=== PATIENT | female | born 1975 | race African-American/Black ===

== ENCOUNTER → 2020-08-30 15:17 | Outpatient (CLI) | payer OTHER, SELFPAY | PROVIDERS: Visit Provider Internal Medicine Adolescent Medicine | DX: S91.301A Unspecified open wound, right foot, initial encounter (principal) | CPT/HCPCS: 87070; 87077; 87186; 87205 ==

== ENCOUNTER → 2020-09-06 08:47 | Outpatient (CLI) | payer OTHER, SELFPAY ==
--- NOTE | 2020-09-06 09:12 | US_ITS ---
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 Rt plantar surface non healing ulcer. Pressures/Indices Right Indices Left Indices Brachial 118.00 mmHg Brachial 120.00 mmHg Low Thigh 74.00 mmHg 0.62 Low Thigh 60.00 mmHg 0.50 Calf 75.00 mmHg 0.63 Calf Ankle(PT) 54.00 mmHg 0.45 Ankle(PT) Digit 47.00 mmHg 0.39 Digit Findings R FLORECITA 0.5 L FLORECITA 0.5 R 0.4 ABN WAVE FORMS DIMINISHED PULSES. Conclusion R FLORECITA 0.5 Severe arterial disease on the right Prior left BKA. Thigh/ brachial index is .5 suggesting severe arterial disease in left thigh ABN WAVE FORMS DIMINISHED PULSES. Electronically signed by : Beni Cannon MD 09/06/2020 17:49:33
== END ==
PROVIDERS: PCP Social Worker; Visit Provider Internal Medicine Adolescent Medicine
DX: M86.30 Chronic multifocal osteomyelitis, unspecified site (principal); E11.621 Type 2 diabetes mellitus with foot ulcer; Z89.421 Acquired absence of other right toe(s); Z89.512 Acquired absence of left leg below knee
CPT/HCPCS: 93923

== ENCOUNTER → 2020-11-10 07:51 | Outpatient (CLI) | payer MEDICAID, SELFPAY ==
[2020-11-10 08:02] LABS: Microscopic, Urine URINE MICROSCOPIC (MICROSCOPIC)
[2020-11-10 08:06] LABS: Appearance,Urine CLEAR (Clear); Bilirubin,Urine Negative (Negative); Blood, Urine Negative (Negative); Color,Urine YELLOW (Yellow); Glucose,Urine (UA) 3+ (Negative); Ketones,Urine Negative (Negative); Leukocyte Esterase,Urine Negative (Negative); Nitrate,Urine Negative (Negative); PH,Urine 5.5 (5.0-8.5); Protein,Urine TRACE (Negative); Urobilinogen,Urine 0.2 EU/dl (0.2)
[2020-11-10 08:22] LABS: WBC,Urine Occasional #/hpf (0-3)
== END ==
PROVIDERS: PCP Internal Medicine Adolescent Medicine; Visit Provider Internal Medicine Adolescent Medicine
DX: M54.5 Low back pain (principal); R30.9 Painful micturition, unspecified
CPT/HCPCS: 81001

== ENCOUNTER 2020-11-22 14:37 | Inpatient (IN) | payer MEDICAID, SELFPAY ==
[2020-11-22 14:38] VITALS: BP 90/47; PULSE 82; RESP 20; TEMP 37.7; O2SAT 99; BMI 53.2
[2020-11-22 14:40] VITALS: BMI 53.1
--- NOTE | 2020-11-22 14:41 | XR_ITS ---
PROCEDURE: XR CHEST PORTABLE CLINICAL HISTORY: COVID POSITIVE FROM [facility] COMPARISON: No exams were available for comparison FINDINGS: There is cardiomegaly with mild CHF or plasma volume overload. The azygos vein is also suggesting plasma volume overload. Patchy density is present in the right upper and right lower lobe consistent with right-sided pneumonia. IMPRESSION: Right-sided pneumonia with mild CHF/volume overload Dictated by: Beni Cannon MD 11/22/2020 15:37 Beni Cannon MD in [place] 11/22/2020 15:37
--- NOTE | 2020-11-22 15:13 | ECG_ITS ---
APPROVED REPORT Exam: Resting ECG HR:80 bpm ECG Measurements Heart Rate 80 AXES SD 114 P 40 QRSd 94 QRS -18 QT 370 T 39 QTc 426 Conclusion Normal sinus rhythm Normal ECG Electronically signed by : Jasper Chen MD 11/23/2020 11:44:48
[2020-11-22 15:30] LABS: ABG Base Excess -6.2 mmol/L (-2.4-2.3); ABG HCO3 19.1 mmhg (22.0-26.0); ABG Oxygen Saturation 98 % (90-100); ABG PCO2 34.1 mmhg (35.0-45.0); ABG PH 7.37 mmol/L (7.35-7.45); ABG PO2 111.6 mmhg (80-100); ABG TCO2 20.2 mmhg (23-27)
[2020-11-22 15:49] LABS: Allen's Test Acceptable; Oxygen 4L NC %; Source Right Radial
[2020-11-22 15:51] LABS: Influenza A, PCR Not Detected (NotDetected); Influenza B, PCR Not Detected (NotDetected)
[2020-11-22 15:52] LABS: Basophils % 0.3 % (0.1-2.0); Eosinophils % 0.1 % (0.1-12.0); Hematocrit 30.9 % (37.0-47.0); Hemoglobin 10.4 g/dL (12.2-16.2); Lymphocytes % 21.6 % (10-50); Mean Corpuscular HGB Conc 33.6 g/dL (31.8-35.4); Mean Corpuscular Hemoglobin 27.8 pg (27.0-31.2); Mean Corpuscular Volume 82.9 fl (81-99); Mean Platelet Volume 7.5 fl (7.4-10.4); Monocytes # 0.2 K/mm3 (0.1-1.0); Monocytes % 2.5 % (1.7-9.3); Neutrophils # 7.1 K/mm3 (1.8-7.8); Neutrophils % 75.5 % (37.0-80.0); Platelet Count 320 K/mm3 (142-424); Red Blood Count 3.73 M/mm3 (4.20-5.40); Red Cell Distribution Width 16.3 % (11.5-17.5); White Blood Count 9.4 K/mm3 (4.8-10.8)
[2020-11-22 15:53] LABS: Chloride 100 mmol/L (98-107); Potassium 5.7 mmoL/L (3.5-5.1); Sodium 135 mmol/L (136-145)
[2020-11-22 15:56] LABS: Anion Gap 13.7 mEq/L (5-15); Blood Urea Nitrogen 57 mg/dl (7-17); Carbon Dioxide 27 mmol/L (22.0-30.0); Creatinine Clearance Estimated 22 mL/min (50-200); Estimated Glomerular Filt Rate 17 ml/min (>60); GFR (African American) 21 ML/MIN (>60); Glucose 114 mg/dl (74-100); Lactic Acid 1.3 mmol/L (0.7-2.1)
--- NOTE | 2020-11-22 15:59 | HMH.EDGENADL ---
ED Disposition Clinical Impression: COVID-19 virus infection, Acute kidney injury, Hyperkalemia Pneumonia Qualifiers: Pneumonia type: due to unspecified organism Laterality: right Lung location: lower lobe of lung Qualified Code(s): J18.9 - Pneumonia, unspecified organism Respiratory failure with hypoxia Qualifiers: Chronicity: acute Qualified Code(s): J96.01 - Acute respiratory failure with hypoxia Hypotension Qualifiers: Hypotension type: unspecified hypotension type Qualified Code(s): I95.9 - Hypotension, unspecified Disposition: Admitted As Inpatient Condition on Discharge: Serious Referrals: Provider,Referral, MD [Primary Care Provider] - - Critical Care Critical Care Time: Yes Attestation: On 11/22/20, the high probability of a clinically significant, sudden or life threatening deterioration of the following system(s) required my full and direct attention, intervention and personal management. The time I documented below is in addition to time spent performing reported procedures but includes the following listed in this critical care notation. Total Critical Care Time: 40 Vital system(s) involved:: Circulatory Failure, Metabolic Failure, Respiratory Failure, Renal Failure My critical care processes included: Assessment & monitoring of V/S, Initial and Re-exams, Data Review/Interpretation, Coordinating Care, Medication Orders and management, Documentation Medical Decision Making - Hunter Inquiry Pt receiving controlled substance: No Vital Signs: 11/22/20 14:38 Temperature 99.9 F H Temperature Source Oral Pulse Rate [Left Radial] 82 Respiratory Rate 20 Blood Pressure [Right Arm] 90/47 L Blood Pressure Mean [Right Arm] 61 Blood Pressure Source [Right Arm] Automatic Cuff Blood Pressure Position [Right Arm] Sitting 02 Sat by Pulse Oximetry 99 Oxygen Delivery Method Room Air - Lab Data Lab Results 11/22/20 14:55: Specimen Source Right radial, O2 % 4l nc, ABG pH 7.37, ABG pCO2 34.1 L, ABG pO2 111.6 H, ABG HCO3 19.1 L, ABG Total CO2 20.2 L, ABG O2 Saturation 98, ABG Base Excess -6.2 L, Beni Test Acceptable 11/22/20 15:30: WBC 9.4, RBC 3.73 L, Hgb 10.4 L, Hct 30.9 L, MCV 82.9, MCH 27.8, MCHC 33.6, RDW 16.3, Plt Count 320, MPV 7.5, Neut % (Auto) 75.5, Lymph % (Auto) 21.6, [place] % (Auto) 2.5, Eos % (Auto) 0.1, Baso % (Auto) 0.3, Neut # (Auto) 7.1, Lymph # (Auto) 2.0, [place] # (Auto) 0.2, Eos # (Auto) 0.0, Baso # (Auto) 0.0 11/22/20 15:30: Sodium 135 L, Potassium 5.7 H, Chloride 100, Carbon Dioxide 27, Anion Gap 13.7, BUN 57 H, Creatinine 2.90 H, Estimated Creat Clear 22, Estimated GFR 17 L*, Est GFR ( Amer) 21 L, Glucose 114 H, Calcium 8.0 L, Troponin I 0.10 H 11/22/20 15:30: Lactate 1.3 11/22/20 15:30: SARS-CoV-2 (PCR) Detected A, Influenza A Untype (PCR) Not detected, Influenza Type B (PCR) Not detected 11/22/20 15:30: NT-Pro-B Natriuret Pep 123 Result diagrams: 11/22/20 15:30 11/22/20 15:30 Orders (Tests/Meds): ED MEDICATIONS Generic Name Dose Route Start Last Admin Trade Name Freq PRN Reason Stop Dose Admin Ceftriaxone Sodium 1 gm/ 50 mls @ 100 mls/hr 11/22/20 17:45 Sodium Chloride IV 12/06/20 17:44 Q24H VANCE Azithromycin 500 mg/ Sodium 250 mls @ 250 mls/hr 11/22/20 17:45 Chloride IV 12/06/20 17:44 Q24H VANCE Discontinued Medications Generic Name Dose Route Start Last Admin Trade Name Freq PRN Reason Stop Dose Admin Dextrose 50 ml 11/22/20 16:40 Dextrose 50% 50ml Syringe (Crash Cart) IVP 11/22/20 16:41 ONCE ONE Insulin Human Regular 5 unit 11/22/20 16:40 Insulin Human Regular 100 Units/Ml 10ml Vial IVP 11/22/20 16:41 ONCE ONE Sodium Chloride 1,000 ml 11/22/20 16:36 Sodium Chloride 0.9% 1000ml Bag IV 11/22/20 16:37 BOLUS ONE Sodium Polystyrene Sulfonate 15 gm 08/17/21 16:39 Sodium Poly Sulfon 15gm/60ml Oral.Susp PO 11/22/20 16:40 ONCE ONE ORDERS Category Date Time Status Troponin I Q3H Lab 11/22/20 17:4
[2020-11-22 16:17] LABS: Coronavirus 19, PCR Detected (NotDetected)
--- NOTE | 2020-11-22 16:17 | PC.NURSE ---
Positive covid results called and reported to
[2020-11-22 16:21] LABS: NT Pro Brain Natriuretic Pep. 123 pg/mL (0-125)
--- NOTE | 2020-11-22 16:49 | PC.NURSE ---
calling dental surgeon for dr gerardo at this time
[2020-11-22 19:29] LABS: Troponin I 0.09 ng/ml (0.00-0.034)
[2020-11-22 20:00] VITALS: O2SAT 95
--- NOTE | 2020-11-22 20:13 | PC.NURSE ---
Report called to [facility] at 194
[2020-11-22 20:40] VITALS: BP 114/76; PULSE 85; RESP 20; TEMP 36.8; O2SAT 94
[2020-11-22 20:53] VITALS: BP 103/54; PULSE 90; RESP 18; TEMP 36.8; O2SAT 95; BMI 51.5
--- NOTE | 2020-11-22 20:53 | PC.NURSE ---
patient up to floor via stretcher.
--- NOTE | 2020-11-22 21:05 | PC.NURSE ---
[employer] was off line and vital hx unable to obtain off unit.
[2020-11-22 21:43] LABS: Troponin I 0.08 ng/ml (0.00-0.034)
[2020-11-22 22:01] LABS: POC Glucose,Bedside 195 (70-110)
[2020-11-23] VITALS (9 sets, daily range): BP systolic 150–167; BP diastolic 59–96; PULSE 80–100; RESP 18–24; TEMP 36.7–37.3; O2SAT 91–98; BMI 51.3
--- NOTE | 2020-11-23 02:12 | ECG_ITS ---
APPROVED REPORT Exam: Resting ECG HR:98 bpm ECG Measurements Heart Rate 98 AXES VT 134 P 55 QRSd 100 QRS 6 QT 356 T 68 QTc 454 Conclusion Normal sinus rhythm Normal ECG Electronically signed by : Jasper Chen MD 11/25/2020 12:11:14
--- NOTE | 2020-11-23 03:52 | PC.NURSE ---
Pt is A/O x4. Pt is a resident at [place]. 2L NC with 02 stats >90%. Pt has had a non productive cough most of the night. C/O of mild chest tightness as she coughs. Noted left BKA, pt states she uses a wheelchair at alf. Pt is using a brief to void, urine shows hematuria. Pt has x1 very loose BM. Admin meds per MAR, VSS, Pt denies N/V, SOB. IV is patent infusing NS @ 150ml/hr. Call light within reach, no concerns at this time.
--- NOTE | 2020-11-23 05:21 | PC.WOUNDNOTE ---
Dressing is applied, C/D/I.
[2020-11-23 05:23] LABS: POC Glucose,Bedside 325 (70-110)
[2020-11-23 06:42] LABS: Chloride 103 mmol/L (98-107); Potassium 5.7 mmoL/L (3.5-5.1); Sodium 135 mmol/L (136-145)
[2020-11-23 06:43] LABS: POC Glucose,Bedside 347 (70-110)
[2020-11-23 06:45] LABS: Anion Gap 15.7 mEq/L (5-15); Blood Urea Nitrogen 56 mg/dl (7-17); Calcium 7.6 mg/dl (8.4-10.2); Carbon Dioxide 22 mmol/L (22.0-30.0); Creatinine Clearance Estimated 31 mL/min (50-200); Estimated Glomerular Filt Rate 25 ml/min (>60); GFR (African American) 31 ML/MIN (>60); Glucose 310 mg/dl (74-100)
--- NOTE | 2020-11-23 07:04 | PC.NURSE ---
Went into pt's room and pt is profusely sweating, can state her name, and date, stated she was at [facility]. Pt was lethargic. All vitals are stable, checked BS: 347. Called and explained symptoms to him, and he states he wants a rectal temp on her and it was 98.1. Pt is arousable by sternum rub.
--- NOTE | 2020-11-23 07:38 | HMH.PHAINT ---
home medicaiton list verified using list from skilled nursing
[2020-11-23 08:11] LABS: Basophils % 0.3 % (0.1-2.0); Eosinophils % 0.1 % (0.1-12.0); Hematocrit 31.2 % (37.0-47.0); Hemoglobin 10.2 g/dL (12.2-16.2); Lymphocytes # 1.3 K/mm3 (0.7-4.5); Lymphocytes % 16.6 % (10-50); Mean Corpuscular HGB Conc 32.6 g/dL (31.8-35.4); Mean Corpuscular Hemoglobin 27.3 pg (27.0-31.2); Mean Corpuscular Volume 83.6 fl (81-99); Mean Platelet Volume 8.9 fl (7.4-10.4); Monocytes # 0.3 K/mm3 (0.1-1.0); Monocytes % 3.3 % (1.7-9.3); Neutrophils # 6.1 K/mm3 (1.8-7.8); Neutrophils % 79.7 % (37.0-80.0); Platelet Count 299 K/mm3 (142-424); Red Blood Count 3.73 M/mm3 (4.20-5.40); Red Cell Distribution Width 16.3 % (11.5-17.5); White Blood Count 7.7 K/mm3 (4.8-10.8)
--- NOTE | 2020-11-23 08:25 | HMH.HP ---
*Admission Date: 11/22/20 *Chief complaint: Lethargy/fever/respiratory distress *History of present illness: Patient states that she has been sick for 2 weeks. She has tested positive for Covid. She says she started with sore throat and cough. She also complains today that her legs are aching. The patient is a resident of a [facility]. Orders were placed by her primary care provider for lab work and for monoclonal antibody therapy. However the patient today was lethargic and weak and had a low pulse oximetry and therefore sent to the emergency department for evaluation. She says that she was vaccinated for COVID-19. Above note per emergency department physician. Patient has been at the the [facility] for several months, transferred from , significant comorbidities including peripheral vascular disease, status post left lower leg amputation. Significant neuropathy issues and chronic pain. She apparently had the [employer] Covid vaccination several months ago. [facility] History I have reviewed the patient's past medical history: Yes Medical History: Reports:: Diabetes Mellitus Type 2, Hyperlipidemia, Hypertension Denies:: Cancer, MRSA *Have you ever received a pneumonia vaccine?: Yes *Have you received a flu vaccine this season?: Yes Other Medical History: Reports: Fibromyalgia, Thyroid Disease Other Surgeries: Yes: Cholecystectomy, Amputation: Yes (BKA Left) - *Social History Last grade of school completed: Some college Smoking Status: Current every day smoker Alcohol Intake: never *Occupational Status:: disabled Housing: assisted living facility *Travel in the last 8 weeks: None Family Hx:: Other Review of Systems - Review of Systems Review of systems:: unable to obtain Meds Home Medications Medication Instructions Recorded Confirmed Type Aspirin 81 mg PO DAILY 11/22/20 11/23/20 History Atorvastatin Calcium [Lipitor 40mg 40 mg PO HS 11/22/20 11/23/20 History Tab] Cholecalciferol (Vitd3)/Vit K2 1 each PO DAILY 11/22/20 11/23/20 History [K2-D3 10,000 Unit Capsule] Dapagliflozin Propanediol [Farxiga] 5 mg PO DAILY 11/22/20 11/23/20 History Famotidine [Acid Controller] 20 mg PO DAILY 11/22/20 11/23/20 History Ferrous Sulfate [Ferrous Sulfate 325 mg PO DAILY 11/22/20 11/23/20 History 325mg Tab] Insulin Glargine,Hum.rec.anlog 75 unit SQ BID 11/22/20 11/23/20 History [Basaglar Kwikpen U-100] Insulin Lispro [Humalog] 35 unit SQ AC 11/22/20 11/23/20 History L. Acidophilus/L.bulgaricus 1 each PO TIDWMEAL 11/22/20 11/23/20 History [Lactobacillus Tablet] Lidocaine 1 each TP HS 11/22/20 11/23/20 History Melatonin 3 mg PO HS 11/22/20 11/23/20 History Multivit with Minerals/Lutein [A 1 each PO DAILY 11/22/20 11/23/20 History Thru Z Advanced Formula Tab] Nortriptyline HCl 25 mg PO DAILY 11/22/20 11/23/20 History Pregabalin 200 mg PO TID 11/22/20 11/23/20 History Tizanidine HCl 4 mg PO TID 11/22/20 11/23/20 History Tramadol HCl [Tramadol 50mg 50 mg PO Q8H PRN 11/22/20 11/23/20 History Tab] carvediloL [Carvedilol 12.5mg Tab] 12.5 mg PO BID 11/22/20 11/23/20 History lisinopriL [Lisinopril] 40 mg PO DAILY 11/22/20 11/23/20 History Allergies Allergy/AdvReac Type Severity Reaction Status Date / Time Penicillins [PENICILLINS] Allergy Unknown RASH/HIVES Verified 11/22/20 16:39 Sulfa (Sulfonamide Allergy Unknown HIVES/RASH Verified 11/22/20 16:39 Antibiotics) [SULFA (SULFONAMIDE ANTIBIOTICS)] Exam Vital signs and Labs for Last 24 Hours: Temp Pulse Resp BP Pulse Ox 98.0 F 85 24 154/88 H 98 11/23/20 07:38 11/23/20 07:38 11/23/20 07:38 11/23/20 07:38 11/23/20 07:38 Laboratory Results - last 24 hr 11/22/20 14:55: Specimen Source Right radial, O2 % 4l nc, ABG pH 7.37, ABG pCO2 34.1 L, ABG pO2 111.6 H, ABG HCO3 19.1 L, ABG Total CO2 20.2 L, ABG O2 Saturation 98, ABG Base Excess -6.2 L, Beni Test Acceptable 11/22/20 15:30: WBC 9.4, RBC 3.73 L
[2020-11-23 12:32] LABS: POC Glucose,Bedside 359 (70-110)
--- NOTE | 2020-11-23 15:17 | SW/DCPLANNER ---
This patient currently resides at [facility]: per [facility] level of care. I will follow up with [facility] once patient is medically stable for discharge.
[2020-11-23 17:40] LABS: POC Glucose,Bedside 399 (70-110)
--- NOTE | 2020-11-23 17:46 | PC.NURSE ---
Pt is alert and oriented x4. She was lethargic this AM but much more alert this afternoon. She is currently up to the chair eating dinner. She requested I call [facility] and have them bring her her purse and some papers from her drawer. They stated they would look into it . She has been NSR on telemetry. Glucose has been elevated at 359 and 399. Covered w/SSI. Appetite is good. She is currently on 2L NC with O2 sats running > 92%. Dry cough noted. Unable to obtain sputum at this time. She states she feels weak but much better now that she is eating.
[2020-11-23 20:49] LABS: POC Glucose,Bedside 474 (70-110)
[2020-11-24] VITALS (8 sets, daily range): BP systolic 142–182; BP diastolic 64–89; PULSE 80–119; RESP 17–25; TEMP 36.1–39.1; O2SAT 85–97; BMI 515737.6
--- NOTE | 2020-11-24 03:28 | PC.NURSE ---
Pt is A/O x4. Pt has c/o of pain x2 this shift, admin meds per MAR with some relief. Pt has remained restless thus far in shift. Has not slept much. Remains on 2L NC with stats >90%. Pt denies any N/V. Pt had x1 loose BM this shift. Pure wick in place. Noted BKA on left. Dressing on right foot is C/D/I. Call light within reach, no concerns at this time.
[2020-11-24 05:10] LABS: POC Glucose,Bedside 339 (70-110)
[2020-11-24 10:03] LABS: Basophils % 0.2 % (0.1-2.0); Eosinophils % 0.3 % (0.1-12.0); Hemoglobin 11.2 g/dL (12.2-16.2); Lymphocytes # 1.2 K/mm3 (0.7-4.5); Mean Corpuscular HGB Conc 34.1 g/dL (31.8-35.4); Mean Corpuscular Hemoglobin 27.6 pg (27.0-31.2); Mean Corpuscular Volume 81.1 fl (81-99); Mean Platelet Volume 7.7 fl (7.4-10.4); Monocytes # 0.3 K/mm3 (0.1-1.0); Monocytes % 2.7 % (1.7-9.3); Neutrophils # 8.2 K/mm3 (1.8-7.8); Neutrophils % 84.9 % (37.0-80.0); Platelet Count 344 K/mm3 (142-424); Red Blood Count 4.06 M/mm3 (4.20-5.40); Red Cell Distribution Width 16.5 % (11.5-17.5); White Blood Count 9.6 K/mm3 (4.8-10.8)
[2020-11-24 10:10] LABS: Chloride 104 mmol/L (98-107); Potassium 5.2 mmoL/L (3.5-5.1); Sodium 139 mmol/L (136-145)
[2020-11-24 10:13] LABS: Blood Urea Nitrogen 44 mg/dl (7-17); Creatinine Clearance Estimated 114 mL/min (50-200); Estimated Glomerular Filt Rate 40 ml/min (>60); GFR (African American) 49 ML/MIN (>60)
[2020-11-24 10:14] LABS: Anion Gap 16.2 mEq/L (5-15); Calcium 7.9 mg/dl (8.4-10.2); Carbon Dioxide 24 mmol/L (22.0-30.0); Glucose 295 mg/dl (74-100)
--- NOTE | 2020-11-24 12:45 | P.PN_ITS ---
Internal Medicine - PN: Subj *Date: 11/24/20 *Time: 12:45 Interval history: Patient has improved over the last 24 hours, is awake, alert, has some increasing pain, probably reasonable as we held her tramadol and Lyrica because of her mental status changes. Has had improving oxygen saturations but did have a temperature of 102 earlier today. Exam Vital signs and Labs for Last 24 Hours: Temp Pulse Resp BP Pulse Ox 102.3 F H 119 H 18 167/75 H 85 L 11/24/20 12:00 11/24/20 12:00 11/24/20 12:00 11/24/20 12:00 11/24/20 12:00 Laboratory Results - last 24 hr 11/23/20 16:08: POC Glucose 399 H* 11/23/20 20:35: POC Glucose 474 H* 11/24/20 05:00: POC Glucose 339 H* 11/24/20 09:58: WBC 9.6, RBC 4.06 L, Hgb 11.2 L, Hct 33.0 L, MCV 81.1, MCH 27.6, MCHC 34.1, RDW 16.5, Plt Count 344, MPV 7.7, Neut % (Auto) 84.9 H, Lymph % (Auto) 12.0, [place] % (Auto) 2.7, Eos % (Auto) 0.3, Baso % (Auto) 0.2, Neut # (Auto) 8.2 H, Lymph # (Auto) 1.2, [place] # (Auto) 0.3, Eos # (Auto) 0.0, Baso # (Auto) 0.0 11/24/20 09:58: Sodium 139, Potassium 5.2 H, Chloride 104, Carbon Dioxide 24, Anion Gap 16.2 H, BUN 44 H, Creatinine 1.40 H D, Estimated Creat Clear 114, Mariaa mated GFR 40 L, Est GFR ( Amer) 49 L D, Glucose 295 H, Calcium 7.9 L I & O for Last 24 hours: Intake & Output 11/22/20 11/23/20 11/24/20 11/25/20 11:59 11:59 11:59 11:59 Intake Total 1502 / 1502 1523 / 1523 Output Total 700 / 700 Balance 1502 / 1502 823 / 823 Weight 319 lb 9 oz 319 lb 9.066 oz Narrative: Patient is much more awake, alert and oriented. Anterior lung boudreaux have good air movement, heart rate regular. Abdomen is obese, soft, normal bowel sounds. Extremity exam remains abnormal, status post left amputation, right leg wrapped. Able to move her extremities well. No focal deficits. Assessment and Plan (1) Acute kidney injury Status: Acute Category: Medical Code(s): N17.9 - Acute kidney failure, unspecified (2) COVID-19 virus infection Status: Acute Category: Medical Code(s): U07.1 - COVID-19 (3) Hyperkalemia Status: Acute Category: Medical Code(s): E87.5 - Hyperkalemia (4) Hypotension Status: Acute Qualifiers: Hypotension type: unspecified hypotension type Qualified Code(s): I95.9 - Hypotension, unspecified Category: Medical Code(s): I95.9 - Hypotension, unspecified (5) Respiratory failure with hypoxia Status: Acute Qualifiers: Chronicity: acute Qualified Code(s): J96.01 - Acute respiratory failure with hypoxia Category: Medical Code(s): J96.91 - Respiratory failure, unspecified with hypoxia (6) Lobar pneumonia Status: Acute Category: Medical Code(s): J18.1 - Lobar pneumonia, unspecified organism - Assessment and plan all Dx Assessment and Plan for all problems:: I think patient's fever and oxygen issues are probably more likely from bacterial lobar pneumonia superimposed on COVID-19 given her vaccinated status and quickly improving oxygenation status. Continue antibiotics, consider transitioning to more assisted coverage regimen if continues to have fevers tomorrow. TANIA and leukocytosis are improving.
[2020-11-24 17:34] LABS: POC Glucose,Bedside 328 (70-110)
[2020-11-25] VITALS: BP 165/85; PULSE 90; PULSE 95; RESP 20; TEMP 36.8; O2SAT 92
[2020-11-25 01:18] LABS: POC Glucose,Bedside 318 (70-110)
--- NOTE | 2020-11-25 03:43 | PC.NURSE ---
A&OX4. TOLERATING 2-3LNC WELL. PT DOES HAVE A TENDENCY TO REMOVE O2 AND HAS TO BE ENCOURAGED TO KEEP IT ON. PT HAS C/O NAUSEA X1 WITH SHIFT, HAS GOTTEN SICK X2. PT CLEANED UP AND TX WITH ZOFRAN PER JUN. THIS HELPED NAUSEA. PT ALSO C/O PAIN IN LEGS, TX WITH PRN PAIN MED. ON REASSESSMENT, PT RESTING IN BED. RE-WRAPPED PT R FOOT PER PT REQUEST. CDI. PT HAS SLEPT INTERMITTENTLY T/O SHIFT. PT BEING CHANGED NEEDED, KEPT CLEAN AND DRY. NO OTHER C/O THUS FAR, VSS WILL CONTINUE TO MONITOR.
[2020-11-25 04:00] VITALS: BP 142/74; PULSE 100; PULSE 103; RESP 49; TEMP 37; O2SAT 90
[2020-11-25 05:00] VITALS: BMI 49.1
[2020-11-25 05:47] LABS: POC Glucose,Bedside 316 (70-110)
[2020-11-25 06:25] LABS: Basophils # 0.1 K/mm3 (0-0.2); Basophils % 0.7 % (0.1-2.0); Hematocrit 34.3 % (37.0-47.0); Hemoglobin 11.7 g/dL (12.2-16.2); Lymphocytes # 1.6 K/mm3 (0.7-4.5); Lymphocytes % 15.7 % (10-50); Mean Corpuscular Hemoglobin 28.2 pg (27.0-31.2); Mean Platelet Volume 7.4 fl (7.4-10.4); Monocytes # 0.4 K/mm3 (0.1-1.0); Monocytes % 4.5 % (1.7-9.3); Neutrophils # 7.8 K/mm3 (1.8-7.8); Platelet Count 366 K/mm3 (142-424); Red Blood Count 4.13 M/mm3 (4.20-5.40); Red Cell Distribution Width 16.4 % (11.5-17.5); White Blood Count 9.9 K/mm3 (4.8-10.8)
[2020-11-25 06:46] LABS: Chloride 100 mmol/L (98-107)
[2020-11-25 06:47] LABS: Potassium 5.1 mmoL/L (3.5-5.1); Sodium 138 mmol/L (136-145)
[2020-11-25 06:50] LABS: Anion Gap 16.1 mEq/L (5-15); Blood Urea Nitrogen 31 mg/dl (7-17); Calcium 7.9 mg/dl (8.4-10.2); Carbon Dioxide 27 mmol/L (22.0-30.0); Creatinine Clearance Estimated 54 mL/min (50-200); Estimated Glomerular Filt Rate 48 ml/min (>60); GFR (African American) 58 ML/MIN (>60); Glucose 294 mg/dl (74-100)
[2020-11-25 07:24] VITALS: BP 168/87; PULSE 107; RESP 18; TEMP 37.2; O2SAT 90
[2020-11-25 08:00] VITALS: PULSE 106; O2SAT 90
--- NOTE | 2020-11-25 08:30 | HMH.DCSUM ---
General - General Admission date:: 11/22/20 Discharge date: 11/25/20 HPI HPI: Patient states that she has been sick for 2 weeks. She has tested positive for Covid. She says she started with sore throat and cough. She also complains today that her legs are aching. The patient is a resident of a shelter. Orders were placed by her primary care provider for lab work and for monoclonal antibody therapy. However the patient today was lethargic and weak and had a low pulse oximetry and therefore sent to the emergency department for evaluation. She says that she was vaccinated for COVID-19. Above note per emergency department physician. Patient has been at the [facility] for several months, transferred from , significant comorbidities including peripheral vascular disease, status post left lower leg amputation. Significant neuropathy issues and chronic pain. She apparently had the [employer] Covid vaccination several months ago. Hospital Course Hospital Course: 45-year-old female with multiple comorbidities admitted for COVID-19 pneumonia and respiratory failure. Has responded well to steroids and antibiotics during admission. Oxygen requirement decreased during admission. Has had some intermittent nausea and vomiting but overall doing better. Reviewed labs from this morning, kidney function drastically improved, TANIA resolved. Examined on day of discharge, patient's lungs sound surprisingly clear, nontender abdomen. Given her current improvement in clinical stability, will plan to transfer her back to her shelter today for continued convalescence. We will treat with empiric course of antibiotics for superimposed bacterial infection/pneumonia. Continue as needed antiemetics. Will complete 3 more days of steroids for inflammation. Medically stable for discharge back to custodial facility where she will continue to have close monitoring. We will have close follow-up with her in the coming week. Pulmonal O2, 3 to 4 L for goal saturation greater than 90%. Objective Vital signs: Temp Pulse Resp BP Pulse Ox 98.9 F 107 H 18 168/87 H 90 L 11/25/20 07:24 11/25/20 07:24 11/25/20 07:24 11/25/20 07:24 11/25/20 07:24 no acute distress, morbidly obese, chronically ill appearing - *Routine HEENT Exam Head: Present: normocephalic Eye: Present: EOMI, PERRL ENT: Present: mucous membranes moist - *Routine Neck Exam Present: supple - *Routine Respiratory Exam Present: CTA bilaterally, distant breath sounds. Absent: crackles - *Routine Cardiovascular Exam Present: RRR - *Routine Abdominal Exam Present: soft, normoactive bowel sounds. Absent: tenderness - *Routine Extremities Exam Absent: cyanosis, clubbing, edema Comments: Left lower extremity amputation again noted, amputation wound well-healed - *Routine Skin Exam Present: warm. Absent: rash Results Labs on day of discharge: Labs from last 24 hours 11/25/20 11/25/20 11/25/20 06:10 06:10 05:20 WBC 9.9 RBC 4.13 L Hgb 11.7 L Hct 34.3 L MCV 83.0 MCH 28.2 MCHC 34.0 RDW 16.4 Plt Count 366 MPV 7.4 Neut % (Auto) 79.0 Lymph % (Auto) 15.7 Fleming % (Auto) 4.5 Eos % (Auto) 0.0 L Baso % (Auto) 0.7 Neut # (Auto) 7.8 Lymph # (Auto) 1.6 Fleming # (Auto) 0.4 Eos # (Auto) 0.0 Baso # (Auto) 0.1 Sodium 138 Potassium 5.1 Chloride 100 Carbon Dioxide 27 Anion Gap 16.1 H BUN 31 H D Creatinine 1.20 H Estimated Creat Clear 54 Estimated GFR 48 L Est GFR ( Amer) 58 L Glucose 294 H POC Glucose 316 H* Calcium 7.9 L 11/24/20 11/24/20 11/24/20 21:03 17:06 09:58 WBC RBC Hgb Hct MCV MCH MCHC RDW Plt Count MPV Neut % (Auto) Lymph % (Auto) Fleming % (Auto) Eos % (Auto) Baso % (Auto) Neut # (Auto) Lymph # (Auto) Fleming # (Auto) Eos # (Auto) Baso
[2020-11-25 10:55] VITALS: BP 142/81; PULSE 108; RESP 20; TEMP 37.2; O2SAT 90
== END 2020-11-25 11:40 | DRG 177 ==
LOC: ER 18:02 → 2ND 20:26
PROVIDERS: Admitting Provider Internal Medicine Adolescent Medicine; Emergency Provider Emergency Medicine; Visit Provider Internal Medicine Adolescent Medicine
DX: U07.1 COVID-19 (principal); J96.01 Acute respiratory failure with hypoxia; J12.82 Pneumonia due to coronavirus disease 2019; N17.9 Acute kidney failure, unspecified; E87.1 Hypo-osmolality and hyponatremia; Z68.42 Body mass index [BMI] 45.0-49.9, adult; E11.9 Type 2 diabetes mellitus without complications; Z79.4 Long term (current) use of insulin; Z79.899 Other long term (current) drug therapy; E87.5 Hyperkalemia; I95.9 Hypotension, unspecified; E11.51 Type 2 diabetes mellitus with diabetic peripheral angiopathy without gangrene; E11.40 Type 2 diabetes mellitus with diabetic neuropathy, unspecified; E78.5 Hyperlipidemia, unspecified; I10 Essential (primary) hypertension; M79.7 Fibromyalgia; F17.200 Nicotine dependence, unspecified, uncomplicated; Z89.512 Acquired absence of left leg below knee; Z88.0 Allergy status to penicillin; Z88.2 Allergy status to sulfonamides; E66.9 Obesity, unspecified
CPT/HCPCS: 36415; 71045; 80048; 82803; 82962; 83605; 83880; 84484; 85025; 87040; 93005; 96365; 96375; 99285; J0456; J2405; U0003

== ENCOUNTER 2020-11-26 16:21 | Inpatient (IN) | payer MEDICAID, SELFPAY ==
[2020-11-26] VITALS (7 sets, daily range): BP systolic 151–174; BP diastolic 70–85; PULSE 112–120; RESP 18–38; TEMP 36.6–37.2; O2SAT 93–97; BMI 48.0
--- NOTE | 2020-11-26 16:45 | HMH.EDGENADL ---
ED Disposition Clinical Impression: Pneumonia due to COVID-19 virus, Acute kidney injury, Encephalopathy Respiratory failure with hypoxia Qualifiers: Chronicity: acute Qualified Code(s): J96.01 - Acute respiratory failure with hypoxia Disposition: Admitted As Inpatient Condition on Discharge: Critical - Critical Care Critical Care Time: Yes Attestation: On 11/26/20, the high probability of a clinically significant, sudden or life threatening deterioration of the following system(s) required my full and direct attention, intervention and personal management. The time I documented below is in addition to time spent performing reported procedures but includes the following listed in this critical care notation. Vital system(s) involved:: Respiratory Failure My critical care processes included: Assessment & monitoring of V/S, Initial and Re-exams, Data Review/Interpretation, Coordinating Care, Medication Orders and management, Documentation Medical Decision Making - Hunter Inquiry Pt receiving controlled substance: No Vital Signs: 11/26/20 16:21 11/26/20 18:07 Temperature 97.8 F Temperature Source Oral Pulse Rate 120 H Pulse Rate [Left Radial] 112 H Respiratory Rate 18 Blood Pressure 174/85 H Blood Pressure [Right Arm] 162/70 H Blood Pressure Mean 102 Blood Pressure Mean [Right Arm] 100 Blood Pressure Source [Right Arm] Automatic Cuff Blood Pressure Position [Right Arm] Sitting 02 Sat by Pulse Oximetry 93 L 95 Oxygen Delivery Method Nasal Cannula Oxygen Flow Rate (LPM) 4 - Lab Data Lab Results 11/26/20 16:55: WBC 10.0, RBC 4.73, Hgb 13.1, Hct 41.4, MCV 87.6, MCH 27.8, MCHC 31.7 L, RDW 16.4, Plt Count 604 H D, MPV 7.9, Neut % (Auto) 81.0 H, Lymph % (Auto) 14.1, [place] % (Auto) 4.4, Eos % (Auto) 0.1, Baso % (Auto) 0.5, Neut # (Auto) 8.1 H, Lymph # (Auto) 1.4, [place] # (Auto) 0.4, Eos # (Auto) 0.0, Baso # (Auto) 0.1 11/26/20 16:55: Sodium 145, Potassium 5.0, Chloride 101, Carbon Dioxide 31 H, Anion Gap 18.0 H, BUN 51 H D, Creatinine 1.40 H, Estimated Creat Clear 43, Estimated GFR 40 L, Est GFR ( Amer) 49 L, Glucose 355 H, Calcium 8.3 L, Total Bilirubin 0.6, AST 54 H, ALT 42, Alkaline Phosphatase 128 H, Troponin I 0.05 H, Total Protein 8.8 H, Albumin 4.1, Globulin 4.7 H, Albumin/Globulin Ratio 0.9 L 11/26/20 16:55: Troponin I 0.05 H 11/26/20 16:55: NT-Pro-B Natriuret Pep 715 H 11/26/20 17:20: Specimen Source L/r, O2 % 100, ABG pH 7.47 H, ABG pCO2 40.8, ABG pO2 50.5 L, ABG HCO3 29.0 H, ABG Total CO2 30.3 H, ABG O2 Saturation 86 L*, ABG Base Excess 5.4 H, Beni Test Y 11/26/20 18:15: Urine Color Yellow, Urine Appearance Clear, Urine pH 6.0, Ur Specific [place] >= 1.030, Urine Protein 3+, Urine Glucose (UA) 3+, Urine Ketones 1+, Urine Blood 3+, Urine Nitrate Negative, Urine Bilirubin Negative, Urine Urobilinogen 0.2, Ur Leukocyte Esterase Negative, Amorphous Sediment 3+, Coarse Granular Casts Occasional, RBC Casts 3-5 11/26/20 18:22: Lactate 1.6 Result diagrams: 11/26/20 16:55 11/26/20 16:55 Orders (Tests/Meds): ED MEDICATIONS Generic Name Dose Route Start Last Admin Trade Name Iveth PRN Reason Stop Dose Admin Levofloxacin/Dextrose 750 mg in 150 mls @ 100 mls/hr 11/26/20 18:30 11/26/20 19:14 Levofloxacin 750mg/150ml Premix IV 12/10/20 18:29 100 mls/hr Q24H VANCE Administration Cefepime HCl 2 gm/ Sodium 100 mls @ 100 mls/hr 11/26/20 18:30 Chloride IV 12/10/20 18:29 Q12H VANCE Vancomycin HCl 1,500 mg/ 250 mls @ 125 mls/hr 11/26/20 19:15 Sodium Chloride IV 11/26/20 21:14 ONCE ONE Vancomycin HCl 1,000 mg/ 250 mls @ 125 mls/hr 11/27/20 08:00 Sodium Chloride IV 12/11/20 07:59 Q12H VANCE Miscellaneous 1 each 11/26/20 18:30 11/26/20 19:09 Vancomycin Consult Request * 12/26/20 18:29 1 each CONSULT PHARMACY VANCE Administration ORDERS Category Date Time Status Troponin I Q3H Lab 11/26/20 20:00 Ordered Blood Culture Stat Micro 11/26/20 18:22 Recei
--- NOTE | 2020-11-26 16:56 | XR_ITS ---
PROCEDURE INFORMATION: Exam: XR Chest Exam date and time: 11/26/2020 4:56 PM Age: 45 years old Clinical indication: Shortness of breath; Additional info: Hypoxia TECHNIQUE: Imaging protocol: XR of the chest. Views: 1 view. COMPARISON: CR XR CHEST PORTABLE 11/22/2020 3:05 PM FINDINGS: Lungs: Patchy bilateral airspace disease seen. Pleural spaces: Unremarkable. No pleural effusion. No pneumothorax. Heart/Mediastinum: Heart appears enlarged. Bones/joints: Unremarkable. Other: Technique and habitus limits exam. IMPRESSION: Moderate patchy bilateral airspace disease worrisome for infection or edema.
--- NOTE | 2020-11-26 16:58 | CT_ITS ---
PROCEDURE INFORMATION: Exam: CT Head Without Contrast Exam date and time: 11/26/2020 4:58 PM Age: 45 years old Clinical indication: Pain; Headache; Additional info: Headache, confusion TECHNIQUE: Imaging protocol: Computed tomography of the head without contrast. Radiation optimization: All CT scans at this facility use at least one of these dose optimization techniques: automated exposure control; mA and/or kV adjustment per patient size (includes targeted exams where dose is matched to clinical indication); or iterative reconstruction. COMPARISON: No relevant prior studies available. FINDINGS: Brain: There is a tract of hypoattenuation extending from the right lateral ventricle toward the cortex. Several additional areas of focal hypoattenuation are seen in the periventricular white matter and subcortical white matter. Cerebral ventricles: No significant ventriculomegaly. Paranasal sinuses: Visualized sinuses are unremarkable. No fluid levels. Mastoid air cells: Visualized mastoid air cells are well aerated. Bones/joints: Unremarkable. No acute fracture. Soft tissues: Unremarkable. IMPRESSION: Scattered subcortical and periventricular white matter hypodensities. These are more than what would be expected to result from microvascular disease at this age. Clinical correlation recommended. MR offered for further imaging characterization.
--- NOTE | 2020-11-26 16:58 | ECG_ITS ---
APPROVED REPORT Exam: Resting ECG HR:112 bpm ECG Measurements Heart Rate 112 AXES IN 130 P 53 QRSd 86 QRS 1 QT 350 T 59 QTc 477 Conclusion Sinus tachycardia Otherwise normal ECG Electronically signed by : Jasper Chen MD 11/27/2020 08:57:37
--- NOTE | 2020-11-26 17:06 | PC.NURSE ---
hypo active bowel sounds heard
[2020-11-26 17:18] LABS: Basophils # 0.1 K/mm3 (0-0.2); Basophils % 0.5 % (0.1-2.0); Eosinophils % 0.1 % (0.1-12.0); Hematocrit 41.4 % (37.0-47.0); Hemoglobin 13.1 g/dL (12.2-16.2); Lymphocytes # 1.4 K/mm3 (0.7-4.5); Lymphocytes % 14.1 % (10-50); Mean Corpuscular HGB Conc 31.7 g/dL (31.8-35.4); Mean Corpuscular Hemoglobin 27.8 pg (27.0-31.2); Mean Corpuscular Volume 87.6 fl (81-99); Mean Platelet Volume 7.9 fl (7.4-10.4); Monocytes # 0.4 K/mm3 (0.1-1.0); Monocytes % 4.4 % (1.7-9.3); Neutrophils # 8.1 K/mm3 (1.8-7.8); Platelet Count 604 K/mm3 (142-424); Red Blood Count 4.73 M/mm3 (4.20-5.40); Red Cell Distribution Width 16.4 % (11.5-17.5)
[2020-11-26 17:21] LABS: ABG Base Excess 5.4 mmol/L (-2.4-2.3); ABG Oxygen Saturation 86 % (90-100); ABG PCO2 40.8 mmhg (35.0-45.0); ABG PH 7.47 mmol/L (7.35-7.45); ABG PO2 50.5 mmhg (80-100); ABG TCO2 30.3 mmhg (23-27); Allen's Test Y; Oxygen 100 %; Source L/R
[2020-11-26 17:36] LABS: Alanine Aminotransferase 42 U/L (12-78); Albumin Level 4.1 g/dl (3.5-5.0); Albumin/Globulin Ratio 0.9 (1.1-1.8); Alkaline Phosphatase 128 U/L (38-126); Aspartate Amino Transferase 54 U/L (14-36); Bilirubin,Total 0.6 mg/dl (0.2-1.3); Blood Urea Nitrogen 51 mg/dl (7-17); Calcium 8.3 mg/dl (8.4-10.2); Carbon Dioxide 31 mmol/L (22.0-30.0); Chloride 101 mmol/L (98-107); Creatinine Clearance Estimated 43 mL/min (50-200); Estimated Glomerular Filt Rate 40 ml/min (>60); GFR (African American) 49 ML/MIN (>60); Globulin 4.7 g/dL (1.3-3.2); Glucose 355 mg/dl (74-100); Sodium 145 mmol/L (136-145); Total Protein,Serum 8.8 g/dl (6.3-8.2)
[2020-11-26 17:45] LABS: NT Pro Brain Natriuretic Pep. 715 pg/mL (0-125)
[2020-11-26 17:48] LABS: Troponin I 0.05 ng/ml (0.00-0.034)
[2020-11-26 17:49] LABS: Troponin I 0.05 ng/ml (0.00-0.034)
--- NOTE | 2020-11-26 18:03 | PC.NURSE ---
Dr Phillips returned call
[2020-11-26 18:29] LABS: Microscopic, Urine URINE MICROSCOPIC (MICROSCOPIC)
[2020-11-26 18:32] LABS: Appearance,Urine CLEAR (Clear); Blood, Urine 3+ (Negative); Color,Urine YELLOW (Yellow); Glucose,Urine (UA) 3+ (Negative); Ketones,Urine 1+ (Negative); Leukocyte Esterase,Urine Negative (Negative); Nitrate,Urine Negative (Negative); Protein,Urine 3+ (Negative); Specific Gravity, Urine >= 1.030 (1.005-1.030); Urobilinogen,Urine 0.2 EU/dl (0.2)
[2020-11-26 18:39] LABS: Bilirubin,Urine Negative (Negative)
[2020-11-26 18:40] LABS: Amorphous Sediment,Urine 3+ /lpf
[2020-11-26 18:41] LABS: Coarse Granular Casts,Urine Occasional #/lpf (0)
[2020-11-26 18:48] LABS: Lactic Acid 1.6 mmol/L (0.7-2.1)
--- NOTE | 2020-11-26 19:05 | PC.NURSE ---
Jessica updated about pt status
--- NOTE | 2020-11-26 23:29 | PC.NURSE ---
PT IS REFUSING TO WEAR VAPOTHERM; PT WAS PLACED ON NON-REBREATHER MASK; PT IS COMBATIVE AND CONTINUOUSLY REMOVES OXYGEN. RN AND RT PLACES OXYGEN BACK ON PT REPEATEDLY, AND POSITIVELY RE-INFORCES PT TO LEAVE OXYGEN ON.
[2020-11-27] VITALS (14 sets, daily range): BP systolic 143–194; BP diastolic 78–90; PULSE 96–120; RESP 16–28; TEMP 36.1–38.3; O2SAT 81–100; BMI 51.8
[2020-11-27 00:35] LABS: POC Glucose,Bedside 264 (70-110)
--- NOTE | 2020-11-27 04:35 | PC.NURSE ---
Pt continues to remain anxious and resistive to care. Would not leave Vapotherm on after multiple attempts by this nurse and RT. Pt continues to pull NRB off, clothing and telemetry leads. Pt has remained confused since arrival to floor, repeating single words. Pt is only alert to self. BP has been elevated. Pt is tachycardic. Will continue to monitor.
[2020-11-27 07:29] LABS: Chloride 106 mmol/L (98-107); Sodium 141 mmol/L (136-145)
[2020-11-27 07:32] LABS: Blood Urea Nitrogen 62 mg/dl (7-17); Carbon Dioxide 24 mmol/L (22.0-30.0); Creatinine Clearance Estimated 35 mL/min (50-200); Estimated Glomerular Filt Rate 32 ml/min (>60); GFR (African American) 39 ML/MIN (>60)
[2020-11-27 07:33] LABS: Calcium 7.7 mg/dl (8.4-10.2)
[2020-11-27 07:46] LABS: Glucose 543 mg/dl (74-100)
--- NOTE | 2020-11-27 07:49 | PC.NURSE ---
MD coding consultant notified of critical glucose and potassium of 6.0
--- NOTE | 2020-11-27 08:11 | CT_ITS ---
PROCEDURE INFORMATION: Exam: CT Abdomen And Pelvis Without Contrast Exam date and time: 11/27/2020 8:11 AM Age: 45 years old Clinical indication: Abdominal pain; Additional info: Abd pain, fever TECHNIQUE: Imaging protocol: Computed tomography of the abdomen and pelvis without contrast. Radiation optimization: All CT scans at this facility use at least one of these dose optimization techniques: automated exposure control; mA and/or kV adjustment per patient size (includes targeted exams where dose is matched to clinical indication); or iterative reconstruction. Other contrast: Oral; COMPARISON: CR XR CHEST PORTABLE 11/26/2020 5:33 PM FINDINGS: Lungs: Patchy airspace consolidation within both lung bases. Likely multifocal pneumonia, recommend dedicated CT chest. Liver: Ill-defined low-attenuation lesions within the right hepatic lobe, largest measuring approximately 7 x 5 cm. Subcapsular lobulated the low-attenuation density within the inferior aspect right hepatic lobe. Evaluation limited without intravenous contrast. Differential includes metastasis, infarction, contusion, and infectious process. Gallbladder and bile ducts: Previous cholecystectomy. Pancreas: Normal. No ductal dilation. Spleen: Normal. No splenomegaly. Adrenal glands: Normal. No mass. Kidneys and ureters: Normal. No hydronephrosis. Stomach and bowel: Unremarkable. No obstruction. No mucosal thickening. Appendix: No evidence of appendicitis. Intraperitoneal space: Unremarkable. No free air. No significant fluid collection. Vasculature: Unremarkable. No abdominal aortic aneurysm. Lymph nodes: Unremarkable. No enlarged lymph nodes. Urinary bladder: Unremarkable as visualized. Reproductive: Unremarkable as visualized. Bones/joints: Unremarkable. No acute fracture. Soft tissues: Unremarkable. Other findings: Exam limited by patient position, as hands should be placed overhead, or at the very least, metallic jewelry should be removed. Excessive streak artifact noted. IMPRESSION: 1. Exam limited by patient position, as hands should be placed overhead, or at the very least, metallic jewelry should be removed. Excessive streak artifact noted. 2. Patchy airspace consolidation within both lung bases. Likely multifocal pneumonia, recommend dedicated CT chest. 3. Ill-defined low-attenuation lesions within the right hepatic lobe, largest measuring approximately 7 x 5 cm. Subcapsular lobulated the low-attenuation density within the inferior aspect right hepatic lobe. Evaluation limited without intravenous contrast. Differential includes metastasis, infarction, contusion, and infectious process. Repeat three-phase imaging recommended.
--- NOTE | 2020-11-27 08:14 | HMH.HP ---
*Admission Date: 11/26/20 *Chief complaint: Mental status changes/cough/fever *History of present illness: 45-year-old -[place] female who is a long-term [facility] resident secondary to multiple medical problems including peripheral vascular disease, chronic leg wounds, chronic neuropathy with nonambulatory status, morbid obesity and severe diabetes, who was hospitalized last week because of COVID-19 pneumonia-vaccine attenuated-who really did well over 48 hours and was transferred back to [facility] with treatment for bacterial pneumonia. However, unfortunately, through the day yesterday morning she became obtunded, febrile, confused and was brought back to the emergency department. She was admitted by the ER physician with broad-spectrum IV antibiotics and standard COVID-19 regimen. Unfortunately, through the night she is failed to really clear. Her vital signs have been stable but she has been confused, taking off her oxygen and her clothing, minimally responsive to nursing staff and complaining of pain all over. [facility] History I have reviewed the patient's past medical history: Yes Medical History: Reports:: Diabetes Mellitus Type 2, Hyperlipidemia, Hypertension Denies:: Cancer, MRSA *Have you ever received a pneumonia vaccine?: Yes *Have you received a flu vaccine this season?: No Other Medical History: Reports: Anemia, Fibromyalgia, Thyroid Disease Other Surgeries: Yes: Cholecystectomy, Amputation: Yes (BKA Left) - *Social History Smoking Status: Current every day smoker Alcohol Intake: never *Occupational Status:: disabled Housing: [facility] *Travel in the last 8 weeks: None Family Hx:: Unable to obtain Review of Systems - Review of Systems Review of systems:: unable to obtain [facility] Home Medications Medication Instructions Recorded Confirmed Type Aspirin 81 mg PO DAILY 11/22/20 11/26/20 History Atorvastatin Calcium [Lipitor 40mg 40 mg PO HS 11/22/20 11/26/20 History Tab] Cholecalciferol (Vitd3)/Vit K2 1 each PO DAILY 11/22/20 11/26/20 History [K2-D3 10,000 Unit Capsule] Dapagliflozin Propanediol [Farxiga] 5 mg PO DAILY 11/22/20 11/26/20 History Famotidine [Acid Controller] 20 mg PO DAILY 11/22/20 11/26/20 History Ferrous Sulfate [Ferrous Sulfate 325 mg PO DAILY 11/22/20 11/26/20 History 325mg Tablet] Insulin Glargine,Hum.rec.anlog 75 unit SQ BID 11/22/20 11/26/20 History [Basaglar Kwikpen U-100] Insulin Lispro [Humalog] 35 unit SQ AC 11/22/20 11/26/20 History L. Acidophilus/L.bulgaricus 1 each PO TIDWMEAL 11/22/20 11/26/20 History [Lactobacillus Tablet] Lidocaine 1 each TP HS 11/22/20 11/26/20 History Melatonin 3 mg PO HS 11/22/20 11/26/20 History Multivit with Minerals/Lutein [A 1 each PO DAILY 11/22/20 11/26/20 History Thru Z Advanced Formula Tab] Nortriptyline HCl 25 mg PO DAILY 11/22/20 11/26/20 History Pregabalin 200 mg PO TID 11/22/20 11/26/20 History Tizanidine HCl 4 mg PO TID 11/22/20 11/26/20 History Tramadol HCl [Tramadol 50mg 50 mg PO Q8H PRN 11/22/20 11/26/20 History Tab] carvediloL [Carvedilol 12.5mg Tab] 12.5 mg PO BID 11/22/20 11/26/20 History lisinopriL [Lisinopril] 40 mg PO DAILY 11/22/20 11/26/20 History Ascorbic Acid [Vitamin C 500mg 500 mg PO QID 11/26/20 11/26/20 History tablet] Cefdinir [Omnicef 300mg Capsule] 300 mg PO BID 11/26/20 11/26/20 History Zinc Sulfate [Zinc Sulfate 220mg 220 mg PO DAILY 11/26/20 11/26/20 History capsule] dexAMETHasone [Dexamethasone] 6 mg PO DAILY 11/26/20 11/26/20 History Allergies Allergy/AdvReac Type Severity Reaction Status Date / Time Penicillins [PENICILLINS] Allergy Unknown RASH/HIVES Verified 11/22/20 16:39 Sulfa (Sulfonamide Allergy Unknown HIVES/RASH Verified 11/22/20 16:39 Antibiotics) [SULFA (SULFONAMIDE ANTIBIOTICS)] Exam Vital signs and Labs for Last 24 Hours: Temp Pulse Resp BP Pulse Ox 99.9 F H 99 H 28 H 184/90 H 93 L 11/27/20 04:00 11/27/20 04
[2020-11-27 08:35] LABS: POC Glucose,Bedside 503 (70-110)
[2020-11-27 08:54] LABS: Thyroid Stimulating Hormone 2.16 uIU/mL (0.465-4.68)
--- NOTE | 2020-11-27 10:17 | HMH.PHACONS ---
- Pharmacy Consult Date: 11/27/20 Time: 10:17 Referring provider: DR. CONRAD Reason for Consult:: VANCOMYCIN DOSING Allergies and ADEs:: Allergies Allergy/AdvReac Type Severity Reaction Status Date / Time Penicillins [PENICILLINS] Allergy Unknown RASH/HIVES Verified 11/22/20 16:39 Sulfa (Sulfonamide Allergy Unknown HIVES/RASH Verified 11/22/20 16:39 Antibiotics) [SULFA (SULFONAMIDE ANTIBIOTICS)] Home Medications:: Home Medications Medication Instructions Recorded Confirmed Type Aspirin 81 mg PO DAILY 11/22/20 11/26/20 History Atorvastatin Calcium [Lipitor 40mg 40 mg PO HS 11/22/20 11/26/20 History Tab] Cholecalciferol (Vitd3)/Vit K2 1 each PO DAILY 11/22/20 11/26/20 History [K2-D3 10,000 Unit Capsule] Dapagliflozin Propanediol [Farxiga] 5 mg PO DAILY 11/22/20 11/26/20 History Famotidine [Acid Controller] 20 mg PO DAILY 11/22/20 11/26/20 History Ferrous Sulfate [Ferrous Sulfate 325 mg PO DAILY 11/22/20 11/26/20 History 325mg Tablet] Insulin Glargine,Hum.rec.anlog 75 unit SQ BID 11/22/20 11/26/20 History [Basaglar Kwikpen U-100] Insulin Lispro [Humalog] 35 unit SQ AC 11/22/20 11/26/20 History L. Acidophilus/L.bulgaricus 1 each PO TIDWMEAL 11/22/20 11/26/20 History [Lactobacillus Tablet] Lidocaine 1 each TP 11/22/20 11/26/20 History Melatonin 3 mg PO 11/22/20 11/26/20 History Multivit with Minerals/Lutein [A 1 each PO DAILY 11/22/20 11/26/20 History Thru Z Advanced Formula Tab] Nortriptyline HCl 25 mg PO DAILY 11/22/20 11/26/20 History Pregabalin 200 mg PO TID 11/22/20 11/26/20 History Tizanidine HCl 4 mg PO TID 11/22/20 11/26/20 History Tramadol HCl [Tramadol 50mg 50 mg PO Q8H PRN 11/22/20 11/26/20 History Tab] carvediloL [Carvedilol 12.5mg Tab] 12.5 mg PO BID 11/22/20 11/26/20 History lisinopriL [Lisinopril] 40 mg PO DAILY 11/22/20 11/26/20 History Ascorbic Acid [Vitamin C 500mg 500 mg PO QID 11/26/20 11/26/20 History tablet] Cefdinir [Omnicef 300mg Capsule] 300 mg PO BID 11/26/20 11/26/20 History Zinc Sulfate [Zinc Sulfate 220mg 220 mg PO DAILY 11/26/20 11/26/20 History capsule] dexAMETHasone [Dexamethasone] 6 mg PO DAILY 11/26/20 11/26/20 History Height: 1.63 m Weight: 137.694 kg Laboratory Results:: Laboratory Results - last 24 hr 11/26/20 16:55: WBC 10.0, RBC 4.73, Hgb 13.1, Hct 41.4, MCV 87.6, MCH 27.8, MCHC 31.7 L, RDW 16.4, Plt Count 604 H D, MPV 7.9, Neut % (Auto) 81.0 H, Lymph % (Auto) 14.1, [place] % (Auto) 4.4, Eos % (Auto) 0.1, Baso % (Auto) 0.5, Neut # (Auto) 8.1 H, Lymph # (Auto) 1.4, [place] # (Auto) 0.4, Eos # (Auto) 0.0, Baso # (Auto) 0.1 11/26/20 16:55: Sodium 145, Potassium 5.0, Chloride 101, Carbon Dioxide 31 H, Anion Gap 18.0 H, BUN 51 H D, Creatinine 1.40 H, Estimated Creat Clear 43, Estimated GFR 40 L, Est GFR ( Amer) 49 L, Glucose 355 H, Calcium 8.3 L, Total Bilirubin 0.6, AST 54 H, ALT 42, Alkaline Phosphatase 128 H, Troponin I 0.05 H, Total Protein 8.8 H, Albumin 4.1, Globulin 4.7 H, Albumin/Globulin Ratio 0.9 L 11/26/20 16:55: Troponin I 0.05 H 11/26/20 16:55: NT-Pro-B Natriuret Pep 715 H 11/26/20 17:20: Specimen Source L/r, O2 % 100, ABG pH 7.47 H, ABG pCO2 40.8, ABG pO2 50.5 L, ABG HCO3 29.0 H, ABG Total CO2 30.3 H, ABG O2 Saturation 86 L*, ABG Base Excess 5.4 H, Beni Test Y 11/26/20 18:15: Urine Color Yellow, Urine Appearance Clear, Urine pH 6.0, Ur Specific [place] >= 1.030, Urine Protein 3+, Urine Glucose (UA) 3+, Urine Ketones 1+, Urine Blood 3+, Urine Nitrate Negative, Urine Bilirubin Negative, Urine Urobilinogen 0.2, Ur Leukocyte Esterase Negative, Amorphous Sediment 3+, Coarse Granular Casts Occasional, RBC Casts 3-5 11/26/20 18:22: Lactate 1.6 11/26/20 23:42: POC Glucose 264 H 11/27/20 06:55: Sodium 141, Potassium 6.0 H, Chloride 106, Carbon Dioxide 24, Anion Gap 17.0 H, BUN 62 H, Creatinine 1.70 H D, Estimated Creat Clear 35, Estimated GFR 32 L, Est GFR ( Amer) 39 L D, Glucose 543 H* D, Calcium 7.7 L 11/27/20 06:55: TSH
[2020-11-27 10:44] LABS: Ammonia < 9 umol/L (9-30)
--- NOTE | 2020-11-27 12:28 | P.CONPHA_ITS ---
[facility] Pharmacy VTE Monitoring - Patient Demographics Admission date: 11/27/20 Report Date: 11/27/20 Time: 12:28 Allergies/Adverse Reactions: Patient Allergies Penicillins [PENICILLINS] Allergy (Unknown, Verified 11/22/20 16:39) RASH/HIVES Sulfa (Sulfonamide Antibiotics) [SULFA (SULFONAMIDE ANTIBIOTICS)] Allergy (Unknown, Verified 11/22/20 16:39) HIVES/RASH Height: 1.63 m Weight: 137.694 kg Patient Problems: Current Active Problems Respiratory failure with hypoxia (Acute) Lobar pneumonia (Acute) Pneumonia due to COVID-19 virus (Acute) Acute kidney injury (Acute) Encephalopathy (Acute) Abdominal pain (Acute) - VTE Risk Labs: VTE Related Lab Results Hgb 13.1 g/dL (12.2-16.2) 11/26/20 16:55 Hct 41.4 % (37.0-47.0) 11/26/20 16:55 Plt Count 604 K/mm3 (142-424) H D 11/26/20 16:55 BUN 62 mg/dl (7-17) H 11/27/20 06:55 Creatinine 1.70 mg/dl (0.52-1.04) H D 11/27/20 06:55 Estimated Creat Clear 35 mL/min (50-200) 11/27/20 06:55 VTE Risk Level: Moderate Risk - Prophylaxis VTE Prophylaxis Ordered?: Yes Types of VTE Prophylaxis: TEDS Knee High, Pharmacological Location of Applied Device: Bilateral Lower Extremeties Pharmacologic Type: Enoxaparin
[2020-11-27 12:33] LABS: POC Glucose,Bedside 446 (70-110)
--- NOTE | 2020-11-27 13:08 | HMH.PHAINT ---
MEDICATION RECONCILIATION COMPLETED ON PATIENT USING MAR FROM [facility]. -JUANITA LOPEZ, CLEMENTINED
[2020-11-27 16:40] LABS: POC Glucose,Bedside 418 (70-110)
--- NOTE | 2020-11-27 17:41 | PC.NURSE ---
Pt has been extremely uncooperative this shift. Pt occasionally refuses PO medications. Pt constantly removes oxygen and de-sats. to mid-70's. Alert to person only. Frequent complaints of abdominal pain. Morphine has been given per MAR and pt reports favorable results. Ativan and Haldol have been given periodically for agitation and have worked tremendously. Pt is currently receiving O2 via Vapotherm @ 40 LPM with sats. >90%. Lungs CTA. LT BKA present. Pressure area noted to RT heel and off-loaded with a pillow. No edema noted. F/C is patent and draining clear, yellow urine at bedside to gravity. No BM thus far today. Abdomen is large, soft, round, and tender to touch. Appetite is poor and pt has refused all meals. 20 G peripheral IV in the RT AC is patent and infusing NS @ 100 ML/HR. B/P has been elevated. Other VSS. Call light within reach. Will continue to monitor.
[2020-11-27 20:56] LABS: POC Glucose,Bedside 276 (70-110)
--- NOTE | 2020-11-27 23:45 | PC.NURSE ---
Tylenol supp 650 admin at 8773.
[2020-11-27 23:47] LABS: Basophils % 0.2 % (0.1-2.0); Eosinophils % 0.1 % (0.1-12.0); Hematocrit 35.5 % (37.0-47.0); Lymphocytes % 10.2 % (10-50); Mean Corpuscular Hemoglobin 27.8 pg (27.0-31.2); Mean Corpuscular Volume 89.6 fl (81-99); Mean Platelet Volume 8.1 fl (7.4-10.4); Monocytes # 0.5 K/mm3 (0.1-1.0); Monocytes % 5.4 % (1.7-9.3); Neutrophils # 8.2 K/mm3 (1.8-7.8); Neutrophils % 84.2 % (37.0-80.0); Red Blood Count 3.97 M/mm3 (4.20-5.40); Red Cell Distribution Width 16.5 % (11.5-17.5); White Blood Count 9.7 K/mm3 (4.8-10.8)
[2020-11-27 23:50] LABS: Platelet Count 626 K/mm3 (142-424)
[2020-11-28] VITALS (14 sets, daily range): BP systolic 128–177; BP diastolic 71–99; PULSE 71–88; RESP 18–25; TEMP 36.6–37.6; O2SAT 90–100; BMI 51.2
[2020-11-28 00:02] LABS: Anion Gap 15.8 mEq/L (5-15); Blood Urea Nitrogen 54 mg/dl (7-17); Calcium 8.6 mg/dl (8.4-10.2); Carbon Dioxide 24 mmol/L (22.0-30.0); Chloride 109 mmol/L (98-107); Creatinine Clearance Estimated 38 mL/min (50-200); Estimated Glomerular Filt Rate 35 ml/min (>60); GFR (African American) 42 ML/MIN (>60); Potassium 4.8 mmoL/L (3.5-5.1); Sodium 144 mmol/L (136-145)
[2020-11-28 00:05] LABS: Glucose 336 mg/dl (74-100)
--- NOTE | 2020-11-28 00:05 | XR_ITS ---
PROCEDURE INFORMATION: Exam: XR Chest Exam date and time: 11/28/20 12:05 AM Age: 45 years old Clinical indication: Shortness of breath and other: Covid; Patient HX: Worsening SOB covid TECHNIQUE: Imaging protocol: XR of the chest. Views: 1 view. COMPARISON: CR XR CHEST PORTABLE 11/26/20 05:33 PM FINDINGS: Lungs: Increasing bilateral predominantly peripheral consolidation and volume loss, consistent with severe COVID-19. Pleural spaces: Unremarkable. No pleural effusion. No pneumothorax. Heart/Mediastinum: Unremarkable. No cardiomegaly. Bones/joints: Unremarkable. IMPRESSION: Significant interval worsening of bilateral pulmonary infiltrates, now consolidating with much lower volumes.
--- NOTE | 2020-11-28 00:36 | PC.NURSE ---
Pt O2 noted to decline around 2313. Vapotherm was increased to 40L 100% per RT. NRB was placed on pt in addition due to sats remaining below 90%. MD family development extension specialist notified. New orders received and carried out. Pt also noted to be febrile. Medicated per jun. Pt O2 improved. She is currently 100% on 40L @100% Vapotherm at this time. Pt is currently sleeping in (R) lateral position. Will continue to monitor.
[2020-11-28 04:04] LABS: ABG Base Excess -1.1 mmol/L (-2.4-2.3); ABG HCO3 23.9 mmhg (22.0-26.0); ABG Oxygen Saturation 97 % (90-100); ABG PCO2 40.7 mmhg (35.0-45.0); ABG PH 7.39 mmol/L (7.35-7.45); ABG PO2 93.9 mmhg (80-100); ABG TCO2 25.2 mmhg (23-27)
--- NOTE | 2020-11-28 05:05 | PC.NURSE ---
Pt has been more cooperative with care, however she still will pull Vapotherm off at times ,but has done it less this shift. She has verbalized needs some, such as asking for a drink of water. Pt remains on Vapotherm. Current settings 40L 100%. O2 sat is 97% at this time. Pt has had 2 stools this shift. One med and one large. Brown, liquid. Urinary output 600 ml. VSSat this time. Will continue to monitor.
[2020-11-28 05:10] LABS: Allen's Test Acceptable; Oxygen 6L %; Source Left Radial
[2020-11-28 06:21] LABS: POC Glucose,Bedside 379 (70-110)
[2020-11-28 07:12] LABS: Basophils % 0.2 % (0.1-2.0); Eosinophils % 0.1 % (0.1-12.0); Hematocrit 34.7 % (37.0-47.0); Hemoglobin 10.6 g/dL (12.2-16.2); Lymphocytes # 1.3 K/mm3 (0.7-4.5); Mean Corpuscular HGB Conc 30.6 g/dL (31.8-35.4); Mean Corpuscular Hemoglobin 27.8 pg (27.0-31.2); Mean Corpuscular Volume 90.8 fl (81-99); Mean Platelet Volume 8.5 fl (7.4-10.4); Monocytes # 0.4 K/mm3 (0.1-1.0); Neutrophils # 8.4 K/mm3 (1.8-7.8); Neutrophils % 82.6 % (37.0-80.0); Platelet Count 608 K/mm3 (142-424); Red Blood Count 3.82 M/mm3 (4.20-5.40); Red Cell Distribution Width 16.4 % (11.5-17.5); White Blood Count 10.1 K/mm3 (4.8-10.8)
[2020-11-28 07:17] LABS: Chloride 111 mmol/L (98-107); Sodium 143 mmol/L (136-145)
[2020-11-28 07:18] LABS: Potassium 4.9 mmoL/L (3.5-5.1)
[2020-11-28 07:20] LABS: Alanine Aminotransferase 21 U/L (12-78); Anion Gap 13.9 mEq/L (5-15); Aspartate Amino Transferase 31 U/L (14-36); Blood Urea Nitrogen 59 mg/dl (7-17); Carbon Dioxide 23 mmol/L (22.0-30.0); Creatinine Clearance Estimated 46 mL/min (50-200); Estimated Glomerular Filt Rate 44 ml/min (>60); GFR (African American) 53 ML/MIN (>60)
[2020-11-28 07:21] LABS: Albumin Level 3.1 g/dl (3.5-5.0); Alkaline Phosphatase 85 U/L (38-126); Bilirubin,Total 0.4 mg/dl (0.2-1.3); Calcium 7.5 mg/dl (8.4-10.2); Globulin 3.1 g/dL (1.3-3.2); Total Protein,Serum 6.2 g/dl (6.3-8.2)
--- NOTE | 2020-11-28 08:04 | CA_ITS ---
APPROVED REPORT EXAM: Comprehensive 2D, Doppler, and color-flow Echocardiogram Material Handler: Guillermina Casillas CRT Ht: 5 ft 3 in Wt: 303lbs BSA: 2.31 BP: 173/85 mmHg Indications: Obesity, DM, HTN, HLD, Smoker 2D Dimensions LVOT 2.00 cm (M/F) 1.5-2.5 M-Mode Dimensions RVDd 1.97 cm (0.9-2.6) LA Diam 3.19 cm (1.9-4.0) LVDd 4.30 cm (3.5-5.7) Ao Diam 3.75 cm (2.0-3.7) LVDs 3.09 cm (3.5-5.7) IVSd 1.41 cm (0.6-1.1) PWd 1.25 cm (0.6-1.1) EF (Teich) 54.80% FS 28.10% EDV (Teich) 83.10 mL ESV (Teich) 37.60 mL LV Diastology E Decel Time 257.00 (160-240 msec) E/A Ratio 0.75 MED E' 5.60 (< 7 cm/sec) MED A' 9.70 cm/s E'/MED E' Ratio 13.64 (>14) LAT E' 4.30 (<10 cm/sec) LAT A' 6.70 cm/s E/LAT E' Ratio 17.77 (>14) Aortic Valve AO Peak GR. 7.40 mmHg Mitral Valve MV E Max Kenny. 76.00 (40-130 cm/s) MV A Velocity 102.00 (40-130 cm/s) E/A Ratio 0.75 MV Decel. Time 257.00 (160-240 ms) MV PHT 75.00 ms Pulmonary Valve PV Peak Velocity 70.00 (50-150 cm/s) Tricuspid Valve TR P. Velocity 121.00 cm/s RAP Estimate 10.00 mmHg RVSP 15.80 mmHg Left Ventricle Left atrium is mildly enlarged, left ventricle is normal size, mild concentric left ventricular hypertrophy, visually estimated ejection fraction 55% with no regional wall motion abnormality, grade 1 diastolic dysfunction seen with tissue Doppler evidence of raise left atrial pressure. Right Ventricle Right atrium and right ventricle are normal size and contractility. Aortic Valve Aortic valve is minimally thickened and fibrosed, there is no aortic stenosis or aortic insufficiency. Mitral Valve Mitral valve is grossly normal, there is trace mitral regurgitation. Tricuspid Valve Tricuspid grossly normal, there is trace tricuspid regurgitation, tricuspid regurgitation jet velocity is inadequate for calculation of the right ventricular systolic pressure. Pulmonic Valve Pulmonic valve is poorly visualized. Great Vessels Aortic root is normal size. Pericardium No significant pericardial effusion noted. Conclusion 1. Mildly enlarged left atrium, normal left ventricular size, mild concentric left ventricular hypertrophy, visually estimated ejection fraction 55% with no regional wall motion abnormality, grade 1 diastolic dysfunction seen without tissue Doppler evidence of raise left atrial pressure. 2. Trace mitral and tricuspid regurgitation. 3. No significant pericardial effusion noted. Electronically signed by : Vipul Moore MD 11/28/2020 18:59:09
--- NOTE | 2020-11-28 08:07 | HMH.ACPN2 ---
Internal Medicine - PN: Subj *Date: 11/28/20 *Time: 08:07 Interval history: Patient has been slightly more alert, much more cooperative and is kept her oxygen delivery cannula on most of the day yesterday and through the night last night. Labs, chest x-ray and ABG reviewed from yesterday. Exam Vital signs and Labs for Last 24 Hours: Temp Pulse Resp BP Pulse Ox 99.6 F 86 25 H 173/85 H 99 11/28/20 04:00 11/28/20 04:00 11/28/20 04:00 11/28/20 04:00 11/28/20 04:00 Laboratory Results - last 24 hr 11/27/20 06:55: TSH 2.16 11/27/20 06:58: POC Glucose 503 H* 11/27/20 10:29: Ammonia < 9 L 11/27/20 12:24: POC Glucose 446 H* 11/27/20 16:20: POC Glucose 418 H* 11/27/20 20:37: POC Glucose 276 H 11/27/20 23:26: Specimen Source Left radial, O2 % 6l, ABG pH 7.39, ABG pCO2 40.7, ABG pO2 93.9, ABG HCO3 23.9, ABG Total CO2 25.2, ABG O2 Saturation 97, ABG Base Excess -1.1, Beni Test Acceptable 11/27/20 23:35: WBC 9.7, RBC 3.97 L, Hgb 11.0 L, Hct 35.5 L, MCV 89.6, MCH 27.8, MCHC 31.0 L, RDW 16.5, Plt Count 626 H, MPV 8.1, Neut % (Auto) 84.2 H, Lymph % (Auto) 10.2, [place] % (Auto) 5.4, Eos % (Auto) 0.1, Baso % (Auto) 0.2, Neut # (Auto) 8.2 H, Lymph # (Auto) 1.0, [place] # (Auto) 0.5, Eos # (Auto) 0.0, Baso # (Auto) 0.0 11/27/20 23:35: Sodium 144, Potassium 4.8, Chloride 109 H, Carbon Dioxide 24, Anion Gap 15.8 H, BUN 54 H, Creatinine 1.60 H, Estimated Creat Clear 38, Estimated GFR 35 L, Est GFR ( Amer) 42 L, Glucose 336 H D, Calcium 8.6 11/28/20 06:12: POC Glucose 379 H* 11/28/20 06:42: WBC 10.1, RBC 3.82 L, Hgb 10.6 L, Hct 34.7 L, MCV 90.8, MCH 27.8, MCHC 30.6 L, RDW 16.4, Plt Count 608 H, MPV 8.5, Neut % (Auto) 82.6 H, Lymph % (Auto) 13.0, [place] % (Auto) 4.0, Eos % (Auto) 0.1, Baso % (Auto) 0.2, Neut # (Auto) 8.4 H, Lymph # (Auto) 1.3, [place] # (Auto) 0.4, Eos # (Auto) 0.0, Baso # (Auto) 0.0 I & O for Last 24 hours: Intake & Output 11/25/20 11/26/20 11/27/20 11/28/20 11:59 11:59 11:59 11:59 Intake Total 480 / 480 2994 / 2994 Output Total 330 / 330 1800 / 1800 Balance 150 / 150 1194 / 1194 Weight 303 lb 9 oz 300 lb 7 oz Narrative: More alert, responsive, follows commands in regards to taking deep breaths. Lungs have rhonchi, difficult exam because of her morbid obesity and her body habitus. Heart rate regular. Abdomen soft. Wounds on the right leg dry and in various stages of healing. Warm and well perfused on the right leg. Stump site looks good. Neurologic exam shows significant weakness. Assessment and Plan (1) Abdominal pain Status: Acute Category: Medical Code(s): R10.9 - Unspecified abdominal pain (2) Acute kidney injury Status: Acute Category: Medical Code(s): N17.9 - Acute kidney failure, unspecified (3) Encephalopathy Status: Acute Category: Medical Code(s): G93.40 - Encephalopathy, unspecified (4) Pneumonia due to COVID-19 virus Status: Acute Category: Medical Code(s): U07.1 - COVID-19; J12.82 - Pneumonia due to coronavirus disease 2019 (5) Respiratory failure with hypoxia Status: Acute Qualifiers: Chronicity: acute Qualified Code(s): J96.01 - Acute respiratory failure with hypoxia Category: Medical Code(s): J96.91 - Respiratory failure, unspecified with hypoxia (6) Lobar pneumonia Status: Acute Category: Medical Code(s): J18.1 - Lobar pneumonia, unspecified organism (7) Hyperkalemia Status: Resolved Category: Medical Code(s): E87.5 - Hyperkalemia - Assessment and plan all Dx Assessment and Plan for all problems:: Multiple comorbidities and current issues: 1. Covid pneumonitis-continue oxygen support, high-dose dexamethasone. 2. Bacterial/lobar/nursing of acquired pneumonia, continue IV antibiotics. 3. Acute kidney injury-improving. 4. Pulmonary edema with oxygen requirement. Certainly related to pneumonitis/pneumonia but possibly related to fluid overload or cardiac dysfunction. Lasix today along with cardiac
[2020-11-28 08:15] LABS: Glucose 412 mg/dl (74-100)
[2020-11-28 11:24] LABS: POC Glucose,Bedside 373 (70-110)
--- NOTE | 2020-11-28 16:10 | DIET.NUTRFU ---
Addendum entered by Roberta Kwong 11/30/20 15:13: Pt has continued to refuse most nourishment t/o stay. Supplements increased to QID. Per nursing pt states she just does not want to eat, nothing sounds good and she is resting t/o most of the day. Please continue to encourage/cue at meal times and t/o day when pt is alert. She is receiving IVF at 100ml/h Weight down 4#. BG remain very high >400 despite minimal intakes. Bowel function normal. Continuing to monitor/alter nutritional care plan as indicated. Original Note: Pt has refused 4 of 5 meals t/o admission, TID supplements on order. Please encourage/cue at meal times.
[2020-11-28 16:47] LABS: POC Glucose,Bedside 446 (70-110)
[2020-11-28 20:25] LABS: POC Glucose,Bedside 440 (70-110)
--- NOTE | 2020-11-28 21:52 | PC.NURSE ---
She is alert to person and her birthday. She believed she was at [facility]. Attempted to orient. she continues to take her oxygen off. She continues on vapotherm at 40LPM 100%FiO2. 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 She is voiding per f/c. Urine is yellow, clear.
[2020-11-29] VITALS (8 sets, daily range): BP systolic 170–193; BP diastolic 81–93; PULSE 78–84; RESP 18–20; TEMP 36.6–37.1; O2SAT 88–98; BMI 51.0
[2020-11-29 05:30] LABS: Basophils % 0.3 % (0.1-2.0); Eosinophils # 0.1 K/mm3 (0.0-0.4); Eosinophils % 0.6 % (0.1-12.0); Hematocrit 31.8 % (37.0-47.0); Hemoglobin 10.1 g/dL (12.2-16.2); Lymphocytes % 10.4 % (10-50); Mean Corpuscular HGB Conc 31.7 g/dL (31.8-35.4); Mean Corpuscular Hemoglobin 28.1 pg (27.0-31.2); Mean Corpuscular Volume 88.5 fl (81-99); Monocytes # 0.3 K/mm3 (0.1-1.0); Monocytes % 3.2 % (1.7-9.3); Neutrophils # 8.1 K/mm3 (1.8-7.8); Neutrophils % 85.5 % (37.0-80.0); Platelet Count 537 K/mm3 (142-424); Red Blood Count 3.59 M/mm3 (4.20-5.40); Red Cell Distribution Width 16.2 % (11.5-17.5); White Blood Count 9.5 K/mm3 (4.8-10.8)
[2020-11-29 05:35] LABS: MANUAL DIFFERENTIAL MANUAL DIFFERENTIAL (MANUAL DIFF)
[2020-11-29 05:37] LABS: Hypochromasia 1+; Lymphocytes % 11 % (10-50); Monocytes % 1 % (2-9); Neutrophils % 83 % (42-76); Platelet Estimate Moderate Increase; Rouleaux 2+; Total Cells Counted 100
[2020-11-29 05:42] LABS: Anion Gap 13.2 mEq/L (5-15); Blood Urea Nitrogen 47 mg/dl (7-17); Calcium 7.4 mg/dl (8.4-10.2); Carbon Dioxide 23 mmol/L (22.0-30.0); Chloride 107 mmol/L (98-107); Creatinine Clearance Estimated 67 mL/min (50-200); Estimated Glomerular Filt Rate 67 ml/min (>60); GFR (African American) 81 ML/MIN (>60); Glucose 396 mg/dl (74-100); Potassium 5.2 mmoL/L (3.5-5.1); Sodium 138 mmol/L (136-145)
--- NOTE | 2020-11-29 06:44 | SW/DCPLANNER ---
Addendum entered by Mary Sarabia 12/05/20 07:35: PATIENT REMAINS IN THE ICU ON VAPOTHERM, SHE DOES HAVE A BED AT [facility] AND IS ON A MEDICAID BEDHOLD. WILL REACH OUT TO THE FACILITY FOR SOME UPDATES.. DISPOSITION UNCERTAIN. Addendum entered by Mary Sarabia 12/01/20 08:43: SENT UPDATES THIS MORNING ON THIS PATIENT TO [facility], STILL DO NOT HAVE A DISPOSITION YET.. PATIENT CONTINUES TO NEED VAPOTHERM.. WILL FOLLOW UP WITH [facility] WHEN PATIENT IS READY FOR A DISPOSITION. Original Note: PATIENT ADMITTED BACK TO [facility] AFTER BEING DISCHARGED WITH COVID... SHE IS A RESIDENT OF [facility] AND IS ON A MEDICAID BEDHOLD... DISPOSITION UNCERTAIN BUT WILL RETURN BACK THERE ONCE MEDICALLY STABLE...
--- NOTE | 2020-11-29 08:58 | HMH.ACPN2 ---
Internal Medicine - PN: Subj *Date: 11/29/20 *Time: 17:55 Interval history: Patient continues to require significant noninvasive respiratory support. Stable on Vapotherm through the day as long as she keeps it on. Patient complains that she does not feel well. Denies chest pain, nausea, vomiting, confusion. Still having shortness of breath. Decreased appetite per her report. Afebrile. Labs reviewed this morning, kidney function improved Exam Vital signs and Labs for Last 24 Hours: Temp Pulse Resp BP Pulse Ox 98.3 F 84 18 193/93 H 92 L 11/29/20 07:47 11/29/20 07:47 11/29/20 07:47 11/29/20 07:47 11/29/20 07:47 Laboratory Results - last 24 hr 11/28/20 11:16: POC Glucose 373 H* 11/28/20 16:40: POC Glucose 446 H* 11/28/20 20:14: POC Glucose 440 H* 11/29/20 05:15: WBC 9.5, RBC 3.59 L, Hgb 10.1 L, Hct 31.8 L, MCV 88.5, MCH 28.1, MCHC 31.7 L, RDW 16.2, Plt Count 537 H, MPV 9.0, Neut % (Auto) 85.5 H, Lymph % (Auto) 10.4, [place] % (Auto) 3.2, Eos % (Auto) 0.6, Baso % (Auto) 0.3, Neut # (Auto) 8.1 H, Lymph # (Auto) 1.0, [place] # (Auto) 0.3, Eos # (Auto) 0.1, Baso # (Auto) 0.0, Total Counted 100, Neutrophils % (Manual) 83 H, Band Neutrophils % 5.0, Lymphocytes % (Manual) 11, Monocytes % (Manual) 1 L, Platelet Estimate Moderate increase, Hypochromasia 1+, Rouleaux 2+ 11/29/20 05:15: Sodium 138, Potassium 5.2 H, Chloride 107, Carbon Dioxide 23, Anion Gap 13.2, BUN 47 H, Creatinine 0.90 D, Estimated Creat Clear 67, Estimated GFR 67, Est GFR ( Amer) 81 D, Glucose 396 H, Calcium 7.4 L I & O for Last 24 hours: Intake & Output 11/26/20 11/27/20 11/28/20 11/29/20 23:59 23:59 23:59 23:59 Intake Total 2382 / 2382 2744 / 2744 2608 / 2608 Output Total 1830 / 1830 5400 / 5400 700 / 700 Balance 552 / 552 -2656 / -2656 1908 / 1908 Weight 127.006 kg 137.694 kg 136 kg 135.652 kg Microbiology Reports for the Last 24 Hours: Microbiology 11/26/20 18:22 Blood Blood Culture - Preliminary NO GROWTH AFTER 48 HOURS 11/26/20 18:22 Blood Blood Culture - Preliminary NO GROWTH AFTER 48 HOURS - Constitutional moderate distress, morbidly obese, chronically ill appearing - *Routine HEENT Exam Head: Present: normocephalic Eye: Present: EOMI, PERRL ENT: Present: mucous membranes moist - *Routine Neck Exam Present: supple. Absent: lymphadenopathy - *Routine Respiratory Exam Present: decreased breath sounds, wheezes, crackles - *Routine Cardiovascular Exam Present: RRR - *Routine Abdominal Exam Present: soft, normoactive bowel sounds. Absent: tenderness - *Routine Extremities Exam Absent: cyanosis, clubbing, edema Comments: LLE with previous BKA noted - *Routine Skin Exam Present: warm. Absent: rash - *Routine Neurological Exam Present: alert, oriented X3 Assessment and Plan (1) Respiratory failure with hypoxia Status: Acute Qualifiers: Chronicity: acute Qualified Code(s): J96.01 - Acute respiratory failure with hypoxia Category: Medical Code(s): J96.91 - Respiratory failure, unspecified with hypoxia (2) Pneumonia due to COVID-19 virus Status: Acute Category: Medical Code(s): U07.1 - COVID-19; J12.82 - Pneumonia due to coronavirus disease 2019 (3) Abdominal pain Status: Acute Category: Medical Code(s): R10.9 - Unspecified abdominal pain (4) Acute kidney injury Status: Acute Category: Medical Code(s): N17.9 - Acute kidney failure, unspecified (5) Encephalopathy Status: Acute Category: Medical Code(s): G93.40 - Encephalopathy, unspecified (6) Lobar pneumonia Status: Acute Category: Medical Code(s): J18.1 - Lobar pneumonia, unspecified organism (7) Hyperkalemia Status: Resolved Category: Medical Code(s): E87.5 - Hyperkalemia - Assessment and plan all Dx Assessment and Plan for all problems:: 45-year-old female with multiple comorbidities complicating her acute hypox
[2020-11-29 11:16] LABS: POC Glucose,Bedside 412 (70-110)
--- NOTE | 2020-11-29 13:20 | PC.NURSE ---
WENT TO TRY TO GET SPUTUM SAMPLE. PT NON COMPLIANT AT THIS TIME. WOULD NOT ATTEMPT TO EVEN TRY TO COUGH. CUP LEFT AT BEDSIDE.
[2020-11-29 21:30] LABS: Vancomycin,Trough 10.5 ug/mL (5.0-10.0)
[2020-11-30] VITALS (14 sets, daily range): BP systolic 110–167; BP diastolic 60–77; PULSE 69–94; RESP 16–22; TEMP 36.5–36.9; O2SAT 89–99; BMI 51.0
[2020-11-30 02:01] LABS: Vancomycin,Peak 29.8 ug/ml (11-39)
--- NOTE | 2020-11-30 02:26 | PC.NURSE ---
[facility] notified of vanc peak, no new orders
--- NOTE | 2020-11-30 04:30 | PC.NURSE ---
shift summary patient started out the shift very restless and uncooperative. repeatedly taking vapotherm off. o2 sats would drop into the low 70s on r/a. staff would walk out the door and patient would immediately take o2 off again. staff explained the importance of o2 and patient stated i don't care . patient given haldol with successful results. patient did require pain medication once this shift as well. after medications given patient rested well throughout night. o2 sats maintaining greater than 95%. patient had removed dressing from right foot. open ulcer present. panel monitor has shown sr. breath sounds coarse throughout, strong nonproductive cough present. able to answer all orientation questions ,but at times will make comments that supposes some confusion present.
[2020-11-30 06:21] LABS: Basophils % 0.2 % (0.1-2.0); Hematocrit 32.6 % (37.0-47.0); Hemoglobin 10.7 g/dL (12.2-16.2); Lymphocytes # 0.9 K/mm3 (0.7-4.5); Lymphocytes % 7.8 % (10-50); Mean Corpuscular HGB Conc 32.8 g/dL (31.8-35.4); Mean Corpuscular Hemoglobin 28.2 pg (27.0-31.2); Mean Corpuscular Volume 86.1 fl (81-99); Mean Platelet Volume 8.7 fl (7.4-10.4); Monocytes # 0.4 K/mm3 (0.1-1.0); Monocytes % 3.9 % (1.7-9.3); Neutrophils # 9.8 K/mm3 (1.8-7.8); Neutrophils % 88.1 % (37.0-80.0); Platelet Count 596 K/mm3 (142-424); Red Blood Count 3.78 M/mm3 (4.20-5.40); Red Cell Distribution Width 15.8 % (11.5-17.5); White Blood Count 11.2 K/mm3 (4.8-10.8)
[2020-11-30 06:23] LABS: MANUAL DIFFERENTIAL MANUAL DIFFERENTIAL (MANUAL DIFF)
[2020-11-30 06:33] LABS: Chloride 107 mmol/L (98-107); Potassium 4.2 mmoL/L (3.5-5.1); Sodium 137 mmol/L (136-145)
[2020-11-30 06:35] LABS: Alanine Aminotransferase 17 U/L (12-78); Aspartate Amino Transferase 38 U/L (14-36); Blood Urea Nitrogen 30 mg/dl (7-17); Creatinine Clearance Estimated 75 mL/min (50-200); Estimated Glomerular Filt Rate 77 ml/min (>60); GFR (African American) 93 ML/MIN (>60)
[2020-11-30 06:36] LABS: Albumin Level 3.1 g/dl (3.5-5.0); Albumin/Globulin Ratio 0.9 (1.1-1.8); Alkaline Phosphatase 78 U/L (38-126); Anion Gap 10.2 mEq/L (5-15); Bilirubin,Total 0.5 mg/dl (0.2-1.3); Calcium 7.8 mg/dl (8.4-10.2); Carbon Dioxide 24 mmol/L (22.0-30.0); Globulin 3.3 g/dL (1.3-3.2); Glucose 287 mg/dl (74-100); Total Protein,Serum 6.4 g/dl (6.3-8.2)
--- NOTE | 2020-11-30 07:32 | PC.NURSE ---
Pt SPO2 95% on 40L/100% this AM, RT turned FIO2 down to 90%, after about 10-15 minutes SPO2 noted to be mid 85%. Pt resting in bed. RT notified of this to turn FIO2 back to 100%.
--- NOTE | 2020-11-30 08:02 | HMH.ACPN2 ---
Internal Medicine - PN: Subj *Date: 11/30/20 *Time: 08:02 Interval history: Patient was stable through the night, has been much more cooperative with nursing staff and has been keeping her oxygen levels with Vapotherm as she has kept the oxygen on through the night. This morning she awakens easily, states that she really wants to go home and is feeling somewhat better. Exam Vital signs and Labs for Last 24 Hours: Temp Pulse Resp BP Pulse Ox 98.1 F 78 20 164/69 H 89 L 11/30/20 07:36 11/30/20 07:36 11/30/20 07:36 11/30/20 07:36 11/30/20 07:36 Laboratory Results - last 24 hr 11/29/20 11:08: POC Glucose 412 H* 11/29/20 20:40: Vancomycin Trough 10.5 H 11/30/20 01:20: Vancomycin Peak 29.8 11/30/20 05:15: WBC 11.2 H, RBC 3.78 L, Hgb 10.7 L, Hct 32.6 L, MCV 86.1, MCH 28.2, MCHC 32.8, RDW 15.8, Plt Count 596 H, MPV 8.7, Neut % (Auto) 88.1 H, Lymph % (Auto) 7.8 L, [place] % (Auto) 3.9, Eos % (Auto) 0.0 L, Baso % (Auto) 0.2, Neut # (Auto) 9.8 H, Lymph # (Auto) 0.9, [place] # (Auto) 0.4, Eos # (Auto) 0.0, Baso # (Auto) 0.0 11/30/20 05:15: Sodium 137, Potassium 4.2, Chloride 107, Carbon Dioxide 24, Anion Gap 10.2, BUN 30 H D, Creatinine 0.80, Estimated Creat Clear 75, Estimated GFR 77, Est GFR ( Amer) 93, Glucose 287 H D, Calcium 7.8 L, Magnesium 2.0, Total Bilirubin 0.5, AST 38 H, ALT 17, Alkaline Phosphatase 78, Total Protein 6.4, Albumin 3.1 L, Globulin 3.3 H, Albumin/Globulin Ratio 0.9 L I & O for Last 24 hours: Intake & Output 11/27/20 11/28/20 11/29/2011/30/21 11:59 11:59 11:59 11:59 Intake Total 480 / 480 3234 / 3234 4020 / 4020 3319 / 3319 Output Total 330 / 330 1800 / 1800 6400 / 6400 3400 / 3400 Balance 150 / 150 1434 / 1434 -2380 / -2380 -81 / -81 Weight 303 lb 9 oz 300 lb 7 oz 299 lb 1 oz 299 lb Narrative: Patient is awake, oriented x2. Oropharynx clear, no JVD but exam is significantly hampered because of her obesity. Anterior lung boudreaux are clear, symmetric air entry, no tracheal deviation. Again poor air movement given her size and respiratory insufficiency issues. Heart rate regular. Abdomen obese but soft. Extremities are warm, stump site of the left leg looks good, wounds on the right leg are unchanged, dressed appropriately per nursing staff. Assessment and Plan (1) Respiratory failure with hypoxia Status: Acute Qualifiers: Chronicity: acute Qualified Code(s): J96.01 - Acute respiratory failure with hypoxia Category: Medical Code(s): J96.91 - Respiratory failure, unspecified with hypoxia (2) Pneumonia due to COVID-19 virus Status: Acute Category: Medical Code(s): U07.1 - COVID-19; J12.82 - Pneumonia due to coronavirus disease 2019 (3) Abdominal pain Status: Acute Category: Medical Code(s): R10.9 - Unspecified abdominal pain (4) Acute kidney injury Status: Acute Category: Medical Code(s): N17.9 - Acute kidney failure, unspecified (5) Encephalopathy Status: Acute Category: Medical Code(s): G93.40 - Encephalopathy, unspecified (6) Lobar pneumonia Status: Acute Category: Medical Code(s): J18.1 - Lobar pneumonia, unspecified organism (7) Hyperkalemia Status: Resolved Category: Medical Code(s): E87.5 - Hyperkalemia - Assessment and plan all Dx Assessment and Plan for all problems:: Overall patient is improving slightly. She will need oxygen support for quite a while. Continue broad-spectrum coverage for custodial acquired lobar pneumonia superimposed on COVID-19 pneumonitis. Renal function improving. Continue to treat with anticoagulation therapy. Continue sliding scale insulin for severe diabetes.
[2020-11-30 08:51] LABS: Lymphocytes % 9 % (10-50); Monocytes % 5 % (2-9); Neutrophils % 86 % (42-76); Platelet Estimate Slight Increase; RBC Morphology Normal; Total Cells Counted 100
--- NOTE | 2020-11-30 10:11 | HMH.ACPN ---
Internal Medicine - PN: Subj *Date: 11/30/20 *Time: 10:11 Exam Vital signs and Labs for Last 24 Hours: Temp Pulse Resp BP Pulse Ox 98.1 F 78 20 164/69 H 95 11/30/20 07:36 11/30/20 07:36 11/30/20 07:36 11/30/20 07:36 11/30/20 08:00 Laboratory Results - last 24 hr 11/29/20 11:08: POC Glucose 412 H* 11/29/20 20:40: Vancomycin Trough 10.5 H 11/30/20 01:20: Vancomycin Peak 29.8 11/30/20 05:15: WBC 11.2 H, RBC 3.78 L, Hgb 10.7 L, Hct 32.6 L, MCV 86.1, MCH 28.2, MCHC 32.8, RDW 15.8, Plt Count 596 H, MPV 8.7, Neut % (Auto) 88.1 H, Lymph % (Auto) 7.8 L, [place] % (Auto) 3.9, Eos % (Auto) 0.0 L, Baso % (Auto) 0.2, Neut # (Auto) 9.8 H, Lymph # (Auto) 0.9, [place] # (Auto) 0.4, Eos # (Auto) 0.0, Baso # (Auto) 0.0, Total Counted 100, Neutrophils % (Manual) 86 H, Lymphocytes % (Manual) 9 L, Monocytes % (Manual) 5, Platelet Estimate Slight increase, RBC Morphology Normal 11/30/20 05:15: Sodium 137, Potassium 4.2, Chloride 107, Carbon Dioxide 24, Anion Gap 10.2, BUN 30 H D, Creatinine 0.80, Estimated Creat Clear 75, Estimated GFR 77, Est GFR ( Amer) 93, Glucose 287 H D, Calcium 7.8 L, Magnesium 2.0, Total Bilirubin 0.5, AST 38 H, ALT 17, Alkaline Phosphatase 78, Total Protein 6.4, Albumin 3.1 L, Globulin 3.3 H, Albumin/Globulin Ratio 0.9 L I & O for Last 24 hours: Intake & Output 11/27/20 11/28/20 11/29/20 11/30/20 23:59 23:59 23:59 23:59 Intake Total 2382 / 2382 2744 / 2744 4297 / 4777 1630 / 1630 Output Total 1830 / 1830 5400 / 5400 2600 / 3800 2100 / 2100 Balance 552 / 552 -0456 / -6796 1697 / 977 -470 / -470 Weight 137.694 kg 136 kg 135.652 kg 135.624 kg Assessment and Plan (1) Respiratory failure with hypoxia Status: Acute Qualifiers: Chronicity: acute Qualified Code(s): J96.01 - Acute respiratory failure with hypoxia Category: Medical Code(s): J96.91 - Respiratory failure, unspecified with hypoxia (2) Pneumonia due to COVID-19 virus Status: Acute Category: Medical Code(s): U07.1 - COVID-19; J12.82 - Pneumonia due to coronavirus disease 2019 (3) Abdominal pain Status: Acute Category: Medical Code(s): R10.9 - Unspecified abdominal pain (4) Acute kidney injury Status: Acute Category: Medical Code(s): N17.9 - Acute kidney failure, unspecified (5) Encephalopathy Status: Acute Category: Medical Code(s): G93.40 - Encephalopathy, unspecified (6) Lobar pneumonia Status: Acute Category: Medical Code(s): J18.1 - Lobar pneumonia, unspecified organism (7) Hyperkalemia Status: Resolved Category: Medical Code(s): E87.5 - Hyperkalemia The patient's infection will respond to the chosen ABx?: Yes Is the patient receiving the right drug, dose, and route?: Yes Could a more targeted ABx be ordered?: No
--- NOTE | 2020-11-30 11:58 | HMH.PHACONS ---
- Pharmacy Consult Date: 11/30/20 Time: 11:58 Referring provider: DR. NEVAREZ Reason for Consult:: VANCOMYCIN LEVELS Allergies and ADEs:: Allergies Allergy/AdvReac Type Severity Reaction Status Date / Time Penicillins [PENICILLINS] Allergy Unknown RASH/HIVES Verified 11/22/20 16:39 Sulfa (Sulfonamide Allergy Unknown HIVES/RASH Verified 11/22/20 16:39 Antibiotics) [SULFA (SULFONAMIDE ANTIBIOTICS)] Home Medications:: Home Medications Medication Instructions Recorded Confirmed Type Aspirin 81 mg PO DAILY 11/22/20 11/26/20 History Atorvastatin Calcium [Lipitor 40mg 40 mg PO HS 11/22/20 11/26/20 History Tab] Cholecalciferol (Vitd3)/Vit K2 1 each PO DAILY 11/22/20 11/26/20 History [K2-D3 10,000 Unit Capsule] Dapagliflozin Propanediol [Farxiga] 5 mg PO DAILY 11/22/20 11/26/20 History Famotidine [Acid Controller] 20 mg PO BID 11/22/20 11/27/20 History Ferrous Sulfate [Ferrous Sulfate 325 mg PO DAILY 11/22/20 11/26/20 History 325mg Tablet] Insulin Glargine,Hum.rec.anlog 75 unit SQ BID 11/22/20 11/26/20 History [Basaglar Kwikpen U-100] Insulin Lispro [Humalog] 35 unit SQ AC 11/22/20 11/26/20 History L. Acidophilus/L.bulgaricus 1 each PO TIDWMEAL 11/22/20 11/26/20 History [Lactobacillus Tablet] Lidocaine 1 each TP HS 11/22/20 11/26/20 History Melatonin 3 mg PO HS 11/22/20 11/26/20 History Multivit with Minerals/Lutein [A 1 each PO DAILY 11/22/20 11/26/20 History Thru Z Advanced Formula Tab] Nortriptyline HCl 25 mg PO DAILY 11/22/20 11/26/20 History Pregabalin 200 mg PO TID 11/22/20 11/26/20 History Tizanidine HCl 4 mg PO TID 11/22/20 11/26/20 History Tramadol HCl [Tramadol 50mg 50 mg PO Q8H PRN 11/22/20 11/26/20 History Tab] carvediloL [Carvedilol 12.5mg Tab] 12.5 mg PO BID 11/22/20 11/26/20 History lisinopriL [Lisinopril] 40 mg PO DAILY 11/22/20 11/26/20 History Ascorbic Acid [Vitamin C 500mg 500 mg PO QID 11/26/20 11/26/20 History tablet] Cefdinir [Omnicef 300mg Capsule] 300 mg PO BID 11/26/20 11/26/20 History Zinc Sulfate [Zinc Sulfate 220mg 220 mg PO DAILY 11/26/20 11/26/20 History capsule] dexAMETHasone [Dexamethasone] 6 mg PO DAILY 11/26/20 11/26/20 History Nicotine [Nicoderm 7mg/24hrs patch] 1 each TD DAILY 11/27/20 11/27/20 History Height: 1.63 m Weight: 135.624 kg Laboratory Results:: Laboratory Results - last 24 hr 11/29/20 20:40: Vancomycin Trough 10.5 H 11/30/20 01:20: Vancomycin Peak 29.8 11/30/20 05:15: WBC 11.2 H, RBC 3.78 L, Hgb 10.7 L, Hct 32.6 L, MCV 86.1, MCH 28.2, MCHC 32.8, RDW 15.8, Plt Count 596 H, MPV 8.7, Neut % (Auto) 88.1 H, Lymph % (Auto) 7.8 L, [place] % (Auto) 3.9, Eos % (Auto) 0.0 L, Baso % (Auto) 0.2, Neut # (Auto) 9.8 H, Lymph # (Auto) 0.9, [place] # (Auto) 0.4, Eos # (Auto) 0.0, Baso # (Auto) 0.0, Total Counted 100, Neutrophils % (Manual) 86 H, Lymphocytes % (Manual) 9 L, Monocytes % (Manual) 5, Platelet Estimate Slight increase, RBC Morphology Normal 11/30/20 05:15: Sodium 137, Potassium 4.2, Chloride 107, Carbon Dioxide 24, Anion Gap 10.2, BUN 30 H D, Creatinine 0.80, Estimated Creat Clear 75, Estimated GFR 77, Est GFR ( Amer) 93, Glucose 287 H D, Calcium 7.8 L, Magnesium 2.0, Total Bilirubin 0.5, AST 38 H, ALT 17, Alkaline Phosphatase 78, Total Protein 6.4, Albumin 3.1 L, Globulin 3.3 H, Albumin/Globulin Ratio 0.9 L Medical History: Reports:: Diabetes Mellitus Type 2, Hyperlipidemia, Hypertension Denies:: Cancer, MRSA Assessment and Plan (1) Respiratory failure with hypoxia Status: Acute Qualifiers: Chronicity: acute Qualified Code(s): J96.01 - Acute respiratory failure with hypoxia Category: Medical Code(s): J96.91 - Respiratory failure, unspecified with hypoxia (2) Pneumonia due to COVID-19 virus Status: Acute Category: Medical Code(s): U07.1 - COVID-19; J12.82 - Pneumonia due to coronavirus disease 2019 (3) Abdominal pain Status: Acute Category: Medical Code(s): R10.9 - Unspecified abdominal pain
--- NOTE | 2020-11-30 17:29 | PC.NURSE ---
She is alert to self and situation. She has slept majority of shift. Remains on vapotherm 40L/100%, lungs diminished throughout. When asked to take deep breath in she will only take small shallow breaths. Occasional dry cough noted, non-productive. HR regular, 80's. Abdomen soft, non-tender w/ active BS. Pt incontinent of bowels this shift, when asked if she knew she had had a BM pt states i dont know, i don't care . Pt uncooperative w/ bed change, partial bed bath given to clean stool off of pt. Pt is able to turn independently but while doing so will repeatedly yell I can't, I can't . Pt has been encouraged to turn and reposition throughout shift, educated on risk for skin breakdown. She continues to refuse to turn off of (R) side. L BKA noted. R foot ulcer w/ dressing c/d/i. Scarring noted to lower abdomen x2. Skin to buttocks/coccyx intact. Block cath to drain @ bedside w/ clear yellow urine noted. She has refused all meal trays thus far, staff have offered to feed pt or get her alternative food that may be more appetizing, pt declines offer. Spoke w/ dietary this shift, protein shakes will be added to meal trays. Call salazar remains w/in reach. Bed alarm in place for safety.
[2020-12-01] VITALS (14 sets, daily range): BP systolic 105–197; BP diastolic 63–88; PULSE 85–104; RESP 16–22; TEMP 36.6–37.5; O2SAT 85–98; BMI 51.7
--- NOTE | 2020-12-01 03:10 | PC.NURSE ---
Pt. able to state name, , year and place; follows commands and can state needs. Pt. has been cooperative t/o shift. O2 sat 90-96% on vapotherm 40L 60%. Intermittent nonproductive cough noted. Pt. c/o h/a, tx with tylenol, effectiveness noted. No c/o n/v/d, dizziness, soa or pain.
--- NOTE | 2020-12-01 07:58 | HMH.ACPN2 ---
Internal Medicine - PN: Subj *Date: 12/01/20 *Time: 07:58 Interval history: Overnight patient did fairly well. Did maintain her Vapotherm in her nose. Much more alert, responsive today, states she feels better. Exam Vital signs and Labs for Last 24 Hours: Temp Pulse Resp BP Pulse Ox 98.1 F 85 16 178/73 H 96 12/01/20 04:00 12/01/20 04:00 12/01/20 04:00 12/01/20 04:00 12/01/20 06:40 Laboratory Results - last 24 hr 11/30/20 05:15: Total Counted 100, Neutrophils % (Manual) 86 H, Lymphocytes % (Manual) 9 L, Monocytes % (Manual) 5, Platelet Estimate Slight increase, RBC Morphology Normal I & O for Last 24 hours: Intake & Output 11/28/20 11/29/20 11/30/20 12/01/20 11:59 11:59 11:59 11:59 Intake Total 3234 / 3234 4020 / 4020 4669 / 4669 2157 / 2157 Output Total 1800 / 1800 6400 / 6400 3400 / 3400 900 / 900 Balance 1434 / 1434 -2380 / -2380 1269 / 1269 1257 / 1257 Weight 300 lb 7 oz 299 lb 1 oz 299 lb 303 lb Narrative: Patient able to lie flat in bed. Maintaining O2 saturations on the lower Vapotherm settings. Lungs have some rhonchi but fairly good air entry, mostly restricted by her obesity. Abdomen soft. Heart rate regular. Skin is warm and well-perfused. No change in her extremity exam. Neurologic exam vastly improved with better alertness, more conversation and no dyspnea when she talks. Assessment and Plan (1) Respiratory failure with hypoxia Status: Acute Qualifiers: Chronicity: acute Qualified Code(s): J96.01 - Acute respiratory failure with hypoxia Category: Medical Code(s): J96.91 - Respiratory failure, unspecified with hypoxia (2) Pneumonia due to COVID-19 virus Status: Acute Category: Medical Code(s): U07.1 - COVID-19; J12.82 - Pneumonia due to coronavirus disease 2019 (3) Abdominal pain Status: Acute Category: Medical Code(s): R10.9 - Unspecified abdominal pain (4) Acute kidney injury Status: Acute Category: Medical Code(s): N17.9 - Acute kidney failure, unspecified (5) Encephalopathy Status: Acute Category: Medical Code(s): G93.40 - Encephalopathy, unspecified (6) Lobar pneumonia Status: Acute Category: Medical Code(s): J18.1 - Lobar pneumonia, unspecified organism (7) Hyperkalemia Status: Resolved Category: Medical Code(s): E87.5 - Hyperkalemia - Assessment and plan all Dx Assessment and Plan for all problems:: Renal function good, hyperkalemia resolved. Continue Vapotherm support. Patient is improving nicely. I am encouraged by her improvement over the past 48 hours.
[2020-12-01 08:45] LABS: Basophils % 0.1 % (0.1-2.0); Eosinophils # 0.1 K/mm3 (0.0-0.4); Eosinophils % 0.8 % (0.1-12.0); Hemoglobin 10.2 g/dL (12.2-16.2); Lymphocytes # 0.7 K/mm3 (0.7-4.5); Lymphocytes % 6.3 % (10-50); Mean Corpuscular HGB Conc 32.9 g/dL (31.8-35.4); Mean Corpuscular Hemoglobin 27.4 pg (27.0-31.2); Mean Corpuscular Volume 83.3 fl (81-99); Mean Platelet Volume 8.4 fl (7.4-10.4); Monocytes # 0.2 K/mm3 (0.1-1.0); Neutrophils # 10.1 K/mm3 (1.8-7.8); Neutrophils % 90.9 % (37.0-80.0); Platelet Count 612 K/mm3 (142-424); Red Blood Count 3.72 M/mm3 (4.20-5.40); Red Cell Distribution Width 15.9 % (11.5-17.5); White Blood Count 11.1 K/mm3 (4.8-10.8)
[2020-12-01 08:47] LABS: MANUAL DIFFERENTIAL MANUAL DIFFERENTIAL (MANUAL DIFF)
[2020-12-01 09:00] LABS: Chloride 107 mmol/L (98-107); Potassium 4.6 mmoL/L (3.5-5.1); Sodium 136 mmol/L (136-145)
[2020-12-01 09:03] LABS: Anion Gap 13.6 mEq/L (5-15); Blood Urea Nitrogen 20 mg/dl (7-17); Calcium 8.2 mg/dl (8.4-10.2); Carbon Dioxide 20 mmol/L (22.0-30.0); Creatinine Clearance Estimated 86 mL/min (50-200); Estimated Glomerular Filt Rate 90 ml/min (>60); GFR (African American) 109 ML/MIN (>60); Glucose 272 mg/dl (74-100)
[2020-12-01 11:12] LABS: Lymphocytes % 10 % (10-50); Monocytes % 2 % (2-9); Neutrophils % 88 % (42-76); Platelet Estimate Slight Increase; RBC Morphology Normal; Total Cells Counted 100
--- NOTE | 2020-12-01 13:40 | PC.NURSE ---
This RN has taken over care of pt at this time
[2020-12-01 15:24] LABS: POC Glucose,Bedside 308 (70-110)
[2020-12-01 15:24] LABS: POC Glucose,Bedside 253 (70-110)
[2020-12-01 15:24] LABS: POC Glucose,Bedside 281 (70-110)
[2020-12-01 15:24] LABS: POC Glucose,Bedside 226 (70-110)
[2020-12-01 15:24] LABS: POC Glucose,Bedside 258 (70-110)
[2020-12-01 15:24] LABS: POC Glucose,Bedside 363 (70-110)
[2020-12-01 15:24] LABS: POC Glucose,Bedside 353 (70-110)
[2020-12-01 15:24] LABS: POC Glucose,Bedside 202 (70-110)
[2020-12-01 17:33] LABS: POC Glucose,Bedside 335 (70-110)
--- NOTE | 2020-12-01 18:40 | PC.NURSE ---
Pt has done well since this RN took over. Pt has been weaned down to 35L, 50% fiO2 per RT this shift. Pt did receive a bed bath and total bed change x2 this shift. Pt has had multiple loose BM's this shift. Block cath draining clear, dark yellow urine per gravity. No other acute changes or complaints, will continue to monitor
[2020-12-01 21:00] LABS: POC Glucose,Bedside 321 (70-110)
[2020-12-01 23:54] LABS: Vancomycin,Trough 6.9 ug/mL (5.0-10.0)
--- NOTE | 2020-12-01 23:57 | PC.NURSE ---
Addendum entered by Jess Avery RN 12/02/20 00:01: New IV placed. Original Note: spoke with [facility]. OK to give Vanco.
[2020-12-02] VITALS (11 sets, daily range): BP systolic 141–166; BP diastolic 67–94; PULSE 88–98; RESP 18–24; TEMP 36.5–37.4; O2SAT 89–98; BMI 40.8
--- NOTE | 2020-12-02 03:20 | PC.NURSE ---
Pt has tolerated titration of vapotherm. She is currently at 20L 30%. Lungs are diminished t/o. VSS. Pt has cooperated with staff this shift. She became upset for a short period of time after speaking with her daughter on the phone. Pt told staff that her mother of cancer. Pt would like to call daughter in the morning. Pt has not had a BM. Urine output 2300. Pt tolerated prone position for an hour. Bed linens changed. New IV placed. No other concerns. Will continue to monitor.
[2020-12-02 06:19] LABS: POC Glucose,Bedside 332 (70-110)
--- NOTE | 2020-12-02 07:48 | HMH.ACPN2 ---
Internal Medicine - PN: Subj *Date: 12/02/20 *Time: 08:51 Interval history: Patient continues to do better this morning. Oxygen requirement down to 30% on high flow nasal cannula, However on exam this morning patient keeps taking her oxygen off and desatted into the 70s. Increased her O2 to 40%. No nausea, chest pain, confusion. Chronically ill baseline appearance. Requesting to go home today. Discussed the need to maintain her oxygen usage any high oxygen requirement that we need to continue to wean from. improving from exam 3 days ago when I last saw her. Exam Vital signs and Labs for Last 24 Hours: Temp Pulse Resp BP Pulse Ox 97.7 F 94 H 20 141/84 H 94 L 12/02/20 04:00 12/02/20 04:00 12/02/20 04:00 12/02/20 04:00 12/02/20 06:17 Laboratory Results - last 24 hr 11/29/20 16:23: POC Glucose 363 H* 11/29/20 20:38: POC Glucose 353 H* 11/30/20 05:15: POC Glucose 281 H 11/30/20 11:29: POC Glucose 226 H 11/30/20 16:05: POC Glucose 258 H 11/30/20 20:57: POC Glucose 253 H 12/01/20 05:33: POC Glucose 308 H* 12/01/20 08:35: WBC 11.1 H, RBC 3.72 L, Hgb 10.2 L, Hct 31.0 L, MCV 83.3, MCH 27.4, MCHC 32.9, RDW 15.9, Plt Count 612 H, MPV 8.4, Neut % (Auto) 90.9 H, Lymph % (Auto) 6.3 L, [place] % (Auto) 2.0, Eos % (Auto) 0.8, Baso % (Auto) 0.1, Neut # (Auto) 10.1 H, Lymph # (Auto) 0.7, [place] # (Auto) 0.2, Eos # (Auto) 0.1, Baso # (Auto) 0.0, Total Counted 100, Neutrophils % (Manual) 88 H, Lymphocytes % (Manual) 10, Monocytes % (Manual) 2, Platelet Estimate Slight increase, RBC Morphology Normal 12/01/20 08:45: Sodium 136, Potassium 4.6, Chloride 107, Carbon Dioxide 20 L, Anion Gap 13.6, BUN 20 H D, Creatinine 0.70, Estimated Creat Clear 86, Estimated GFR 90, Est GFR ( Amer) 109, Glucose 272 H, Calcium 8.2 L 12/01/20 11:03: POC Glucose 202 H 12/01/20 17:14: POC Glucose 335 H* 12/01/20 20:53: POC Glucose 321 H* 12/01/20 21:35: Vancomycin Trough 6.9 12/02/20 05:36: POC Glucose 332 H* I & O for Last 24 hours: Intake & Output 11/29/20 11/30/20 12/01/20 12/02/20 23:59 23:59 23:59 23:59 Intake Total 4297 / 4777 4166 / 4166 1151 / 1151 Output Total 2600 / 3800 3000 / 3000 2000 / 2000 3200 / 3200 Balance 1697 / 977 1166 / 1166 -849 / -849 -3200 / -3200 Weight 135.652 kg 135.624 kg 137.438 kg 108.522 kg Microbiology Reports for the Last 24 Hours: Microbiology 11/26/20 18:22 Blood Blood Culture - Final NO GROWTH AFTER 5 DAYS 11/26/20 18:22 Blood Blood Culture - Final NO GROWTH AFTER 5 DAYS - Constitutional mild distress, morbidly obese, chronically ill appearing - *Routine HEENT Exam Head: Present: normocephalic Eye: Present: EOMI, PERRL ENT: Present: mucous membranes moist - *Routine Neck Exam Present: supple. Absent: lymphadenopathy - *Routine Respiratory Exam Present: CTA bilaterally - *Routine Cardiovascular Exam Present: RRR - *Routine Abdominal Exam Present: soft, normoactive bowel sounds. Absent: tenderness - *Routine Extremities Exam Present: edema (Trace in right lower extremity). Absent: cyanosis, clubbing Comments: Left lower extremity amputation - *Routine Skin Exam Present: warm. Absent: rash - *Routine Neurological Exam Present: alert, oriented X3 Assessment and Plan (1) Respiratory failure with hypoxia Status: Acute Qualifiers: Chronicity: acute Qualified Code(s): J96.01 - Acute respiratory failure with hypoxia Category: Medical Code(s): J96.91 - Respiratory failure, unspecified with hypoxia (2) Pneumonia due to COVID-19 virus Status: Acute Category: Medical Code(s): U07.1 - COVID-19; J12.82 - Pneumonia due to coronavirus disease 2019 (3) Abdominal pain Status: Acute Category: Medical Code(s): R10.9 - Unspecified abdominal pain (4) Acute kidney injury Status: Acute Category: Medical Code(s): N17.9 - Acute kidney failure, unspecified (5) Encephalopathy Status: Acu
[2020-12-02 08:05] LABS: Basophils % 0.1 % (0.1-2.0); Eosinophils % 0.3 % (0.1-12.0); Hematocrit 34.3 % (37.0-47.0); Lymphocytes # 0.7 K/mm3 (0.7-4.5); Lymphocytes % 5.6 % (10-50); Mean Corpuscular HGB Conc 33.4 g/dL (31.8-35.4); Mean Corpuscular Hemoglobin 28.2 pg (27.0-31.2); Mean Corpuscular Volume 84.5 fl (81-99); Monocytes # 0.3 K/mm3 (0.1-1.0); Monocytes % 2.6 % (1.7-9.3); Neutrophils # 11.6 K/mm3 (1.8-7.8); Neutrophils % 91.3 % (37.0-80.0); Platelet Count 772 K/mm3 (142-424); Red Blood Count 4.06 M/mm3 (4.20-5.40); Red Cell Distribution Width 15.6 % (11.5-17.5); White Blood Count 12.7 K/mm3 (4.8-10.8)
[2020-12-02 08:20] LABS: MANUAL DIFFERENTIAL MANUAL DIFFERENTIAL (MANUAL DIFF)
[2020-12-02 09:10] LABS: Chloride 103 mmol/L (98-107); Potassium 4.9 mmoL/L (3.5-5.1); Sodium 135 mmol/L (136-145)
[2020-12-02 09:12] LABS: Alanine Aminotransferase 18 U/L (12-78); Aspartate Amino Transferase 36 U/L (14-36); Blood Urea Nitrogen 19 mg/dl (7-17); Creatinine Clearance Estimated 199 mL/min (50-200); Estimated Glomerular Filt Rate 107 ml/min (>60); GFR (African American) 130 ML/MIN (>60)
[2020-12-02 09:13] LABS: Albumin Level 3.1 g/dl (3.5-5.0); Alkaline Phosphatase 62 U/L (38-126); Anion Gap 18.9 mEq/L (5-15); Bilirubin,Total 0.6 mg/dl (0.2-1.3); Calcium 8.6 mg/dl (8.4-10.2); Carbon Dioxide 18 mmol/L (22.0-30.0); Globulin 3.2 g/dL (1.3-3.2); Glucose 307 mg/dl (74-100); Total Protein,Serum 6.3 g/dl (6.3-8.2)
[2020-12-02 09:59] LABS: Lymphocytes % 9 % (10-50); Monocytes % 1 % (2-9); Neutrophils % 90 % (42-76); RBC Morphology Normal; Total Cells Counted 100
[2020-12-02 10:00] LABS: Platelet Estimate Marked Increase
--- NOTE | 2020-12-02 10:03 | HMH.PHACONS ---
- Pharmacy Consult Date: 12/02/20 Time: 10:03 Referring provider: DR. ALCOCER Reason for Consult:: VANCOMYCIN TROUGH LEVEL Allergies and ADEs:: Allergies Allergy/AdvReac Type Severity Reaction Status Date / Time Penicillins [PENICILLINS] Allergy Unknown RASH/HIVES Verified 11/22/20 16:39 Sulfa (Sulfonamide Allergy Unknown HIVES/RASH Verified 11/22/20 16:39 Antibiotics) [SULFA (SULFONAMIDE ANTIBIOTICS)] Home Medications:: Home Medications Medication Instructions Recorded Confirmed Type Aspirin 81 mg PO DAILY 11/22/20 11/26/20 History Atorvastatin Calcium [Lipitor 40mg 40 mg PO HS 11/22/20 11/26/20 History Tab] Cholecalciferol (Vitd3)/Vit K2 1 each PO DAILY 11/22/20 11/26/20 History [K2-D3 10,000 Unit Capsule] Dapagliflozin Propanediol [Farxiga] 5 mg PO DAILY 11/22/20 11/26/20 History Famotidine [Acid Controller] 20 mg PO BID 11/22/20 11/27/20 History Ferrous Sulfate [Ferrous Sulfate 325 mg PO DAILY 11/22/20 11/26/20 History 325mg Tablet] Insulin Glargine,Hum.rec.anlog 75 unit SQ BID 11/22/20 11/26/20 History [Basaglar Kwikpen U-100] Insulin Lispro [Humalog] 35 unit SQ AC 11/22/20 11/26/20 History L. Acidophilus/L.bulgaricus 1 each PO TIDWMEAL 11/22/20 11/26/20 History [Lactobacillus Tablet] Lidocaine 1 each TP HS 11/22/20 11/26/20 History Melatonin 3 mg PO HS 11/22/20 11/26/20 History Multivit with Minerals/Lutein [A 1 each PO DAILY 11/22/20 11/26/20 History Thru Z Advanced Formula Tab] Nortriptyline HCl 25 mg PO DAILY 11/22/20 11/26/20 History Pregabalin 200 mg PO TID 11/22/20 11/26/20 History Tizanidine HCl 4 mg PO TID 11/22/20 11/26/20 History Tramadol HCl [Tramadol 50mg 50 mg PO Q8H PRN 11/22/20 11/26/20 History Tab] carvediloL [Carvedilol 12.5mg Tab] 12.5 mg PO BID 11/22/20 11/26/20 History lisinopriL [Lisinopril] 40 mg PO DAILY 11/22/20 11/26/20 History Ascorbic Acid [Vitamin C 500mg 500 mg PO QID 11/26/20 11/26/20 History tablet] Cefdinir [Omnicef 300mg Capsule] 300 mg PO BID 11/26/20 11/26/20 History Zinc Sulfate [Zinc Sulfate 220mg 220 mg PO DAILY 11/26/20 11/26/20 History capsule] dexAMETHasone [Dexamethasone] 6 mg PO DAILY 11/26/20 11/26/20 History Nicotine [Nicoderm 7mg/24hrs patch] 1 each TD DAILY 11/27/20 11/27/20 History Height: 1.63 m Weight: 108.522 kg Laboratory Results:: Laboratory Results - last 24 hr 11/29/20 16:23: POC Glucose 363 H* 11/29/20 20:38: POC Glucose 353 H* 11/30/20 05:15: POC Glucose 281 H 11/30/20 11:29: POC Glucose 226 H 11/30/20 16:05: POC Glucose 258 H 11/30/20 20:57: POC Glucose 253 H 12/01/20 05:33: POC Glucose 308 H* 12/01/20 08:35: Total Counted 100, Neutrophils % (Manual) 88 H, Lymphocytes % (Manual) 10, Monocytes % (Manual) 2, Platelet Estimate Slight increase, RBC Morphology Normal 12/01/20 11:03: POC Glucose 202 H 12/01/20 17:14: POC Glucose 335 H* 12/01/20 20:53: POC Glucose 321 H* 12/01/20 21:35: Vancomycin Trough 6.9 12/02/20 05:36: POC Glucose 332 H* 12/02/20 07:30: WBC 12.7 H, RBC 4.06 L, Hct 34.3 L, MCV 84.5, MCH 28.2, MCHC 33.4, RDW 15.6, Plt Count 772 H D, MPV 9.0, Neut % (Auto) 91.3 H, Lymph % (Auto) 5.6 L, [place] % (Auto) 2.6, Eos % (Auto) 0.3, Baso % (Auto) 0.1, Neut # (Auto) 11.6 H, Lymph # (Auto) 0.7, [place] # (Auto) 0.3, Eos # (Auto) 0.0, Baso # (Auto) 0.0, Total Counted 100, Neutrophils % (Manual) 90 H, Lymphocytes % (Manual) 9 L, Monocytes % (Manual) 1 L, Platelet Estimate Marked increase, RBC Morphology Normal 12/02/20 07:30: Sodium 135 L, Potassium 4.9, Chloride 103, Carbon Dioxide 18 L, Anion Gap 18.9 H, BUN 19 H, Creatinine 0.60, Estimated Creat Clear 199, Estimated GFR 107, Est GFR ( Amer) 130, Glucose 307 H, Calcium 8.6, Total Bilirubin 0.6, AST 36, ALT 18, Alkaline Phosphatase 62, Total Protein 6.3, Albumin 3.1 L, Globulin 3.2, Albumin/Globulin Ratio 1.0 L Medical History: Reports:: Diabetes Mellitus Type 2, Hyperlipidemia, Hypertension Denies:: Cancer, MRSA Assessment and Plan (1) Resp
[2020-12-02 10:04] LABS: Hemoglobin 11.5 g/dL (12.2-16.2)
--- NOTE | 2020-12-02 12:59 | DIET.NUTRFU ---
Pt with continued improvement per MD progress note. PO intake remains poor with 25 and 0 percent recorded at last two meals. Pt receiving glucerna at all meals and protein shake at 3pm. POC glucose- 335, 321, and 332. Will continue with current plan of care and encourage increased PO intake.
--- NOTE | 2020-12-02 19:03 | PC.NURSE ---
Pt has had multiple loose BM's this shift. Pt has been educated multiple times regarding taking her vapotherm off, pt has desatted as low as 71% while taking vapotherm off. Pt is currently 20L, 40% fio2 on vapotherm. No other acute changes or complaints, will continue to monitor.
[2020-12-03] VITALS (12 sets, daily range): BP systolic 147–183; BP diastolic 69–97; PULSE 74–88; RESP 18–20; TEMP 36.6–36.9; O2SAT 86–97; BMI 51.0
--- NOTE | 2020-12-03 05:29 | PC.NURSE ---
Patient FSBS at was 497, spoke with Dr. Fernández received v.o. to give Humalog 20 units and Lantus 45 units; unsuccessful with lab draw this AM; I have called Lab to come and draw AM labs; no s/s of acute distress noted this shift; call light within reach, bed at lowest level for safety; will continue to monitor.
[2020-12-03 06:53] LABS: Basophils % 0.1 % (0.1-2.0); Eosinophils % 0.3 % (0.1-12.0); Hematocrit 33.8 % (37.0-47.0); Hemoglobin 10.9 g/dL (12.2-16.2); Lymphocytes # 0.6 K/mm3 (0.7-4.5); Lymphocytes % 4.4 % (10-50); Mean Corpuscular HGB Conc 32.3 g/dL (31.8-35.4); Mean Corpuscular Hemoglobin 27.7 pg (27.0-31.2); Mean Corpuscular Volume 85.8 fl (81-99); Monocytes # 0.3 K/mm3 (0.1-1.0); Monocytes % 2.1 % (1.7-9.3); Neutrophils # 11.6 K/mm3 (1.8-7.8); Neutrophils % 93.2 % (37.0-80.0); Platelet Count 711 K/mm3 (142-424); Red Blood Count 3.94 M/mm3 (4.20-5.40); Red Cell Distribution Width 15.5 % (11.5-17.5); White Blood Count 12.5 K/mm3 (4.8-10.8)
[2020-12-03 06:54] LABS: Chloride 103 mmol/L (98-107)
[2020-12-03 06:55] LABS: Potassium 4.4 mmoL/L (3.5-5.1); Sodium 134 mmol/L (136-145)
[2020-12-03 06:58] LABS: Anion Gap 13.4 mEq/L (5-15); Blood Urea Nitrogen 24 mg/dl (7-17); Calcium 9.2 mg/dl (8.4-10.2); Carbon Dioxide 22 mmol/L (22.0-30.0); Creatinine Clearance Estimated 75 mL/min (50-200); Estimated Glomerular Filt Rate 77 ml/min (>60); GFR (African American) 93 ML/MIN (>60); Glucose 361 mg/dl (74-100); Magnesium 1.5 mg/dl (1.6-2.3)
[2020-12-03 07:01] LABS: MANUAL DIFFERENTIAL MANUAL DIFFERENTIAL (MANUAL DIFF)
--- NOTE | 2020-12-03 07:38 | HMH.ACPN2 ---
Internal Medicine - PN: Subj *Date: 12/03/20 *Time: 08:08 Interval history: Patient feels well this morning on exam. Saturations in the mid 90s on 40% FiO2. No acute events overnight. Remains afebrile. Blood sugar still elevated in the 300 range this morning. Reviewed labs, magnesium low. Continues to show slow but gradual improvement. Chest pain, nausea or vomiting. Exam Vital signs and Labs for Last 24 Hours: Temp Pulse Resp BP Pulse Ox 97.9 F 80 18 155/71 H 95 12/03/20 04:00 12/03/20 04:00 12/03/20 04:00 12/03/20 04:00 12/03/20 06:59 Laboratory Results - last 24 hr 12/02/20 07:30: WBC 12.7 H, RBC 4.06 L, Hgb 11.5 L D, Hct 34.3 L, MCV 84.5, MCH 28.2, MCHC 33.4, RDW 15.6, Plt Count 772 H D, MPV 9.0, Neut % (Auto) 91.3 H, Lymph % (Auto) 5.6 L, [place] % (Auto) 2.6, Eos % (Auto) 0.3, Baso % (Auto) 0.1, Neut # (Auto) 11.6 H, Lymph # (Auto) 0.7, [place] # (Auto) 0.3, Eos # (Auto) 0.0, Baso # (Auto) 0.0, Total Counted 100, Neutrophils % (Manual) 90 H, Lymphocytes % (Manual) 9 L, Monocytes % (Manual) 1 L, Platelet Estimate Marked increase, RBC Morphology Normal 12/02/20 07:30: Sodium 135 L, Potassium 4.9, Chloride 103, Carbon Dioxide 18 L, Anion Gap 18.9 H, BUN 19 H, Creatinine 0.60, Estimated Creat Clear 199, Estimated GFR 107, Est GFR ( Amer) 130, Glucose 307 H, Calcium 8.6, Total Bilirubin 0.6, AST 36, ALT 18, Alkaline Phosphatase 62, Total Protein 6.3, Albumin 3.1 L, Globulin 3.2, Albumin/Globulin Ratio 1.0 L 12/03/20 06:38: WBC 12.5 H, RBC 3.94 L, Hgb 10.9 L, Hct 33.8 L, MCV 85.8, MCH 27.7, MCHC 32.3, RDW 15.5, Plt Count 711 H, MPV 8.0, Neut % (Auto) 93.2 H, Lymph % (Auto) 4.4 L, [place] % (Auto) 2.1, Eos % (Auto) 0.3, Baso % (Auto) 0.1, Neut # (Auto) 11.6 H, Lymph # (Auto) 0.6 L, [place] # (Auto) 0.3, Eos # (Auto) 0.0, Baso # (Auto) 0.0 12/03/20 06:38: Sodium 134 L, Potassium 4.4, Chloride 103, Carbon Dioxide 22, Anion Gap 13.4, BUN 24 H D, Creatinine 0.80 D, Estimated Creat Clear 75, Estimated GFR 77, Est GFR ( Amer) 93 D, Glucose 361 H, Calcium 9.2, Magnesium 1.5 L I & O for Last 24 hours: Intake & Output 11/30/20 12/01/20 12/02/20 12/03/20 23:59 23:59 23:59 23:59 Intake Total 4166 / 4166 1151 / 1151 720 / 720 1260 / 1260 Output Total 3000 / 3000 2000 / 2000 5200 / 6200 1400 / 1400 Balance 1166 / 1166 -849 / -849 -4480 / -5480 -140 / -140 Weight 135.624 kg 137.438 kg 108.522 kg 135.766 kg Narrative: - Constitutional minimal distress with interval improvement, morbidly obese, chronically ill appearing - *Routine HEENT Exam Head: Present: normocephalic Eye: Present: EOMI, PERRL ENT: Present: mucous membranes moist - *Routine Neck Exam Present: supple. Absent: lymphadenopathy - *Routine Respiratory Exam Present: CTA bilaterally, complicated by body habitus - *Routine Cardiovascular Exam Present: RRR - *Routine Abdominal Exam Present: soft, normoactive bowel sounds. Absent: tenderness - *Routine Extremities Exam Present: edema (Trace in right lower extremity). No cyanosis, clubbing; Left lower extremity amputation chronic - *Routine Skin Exam Present: warm. Absent: rash - *Routine Neurological Exam Present: alert, oriented X3 Assessment and Plan (1) Respiratory failure with hypoxia Status: Acute Qualifiers: Chronicity: acute Qualified Code(s): J96.01 - Acute respiratory failure with hypoxia Category: Medical Code(s): J96.91 - Respiratory failure, unspecified with hypoxia (2) Pneumonia due to COVID-19 virus Status: Acute Category: Medical Code(s): U07.1 - COVID-19; J12.82 - Pneumonia due to coronavirus disease 2019 (3) Abdominal pain Status: Acute Category: Medical Code(s): R10.9 - Unspecified abdominal pain (4) Acute kidney injury Status: Acute Category: Medical Code(s): N17.9 - Acute kidney failure, unspecified (5) Encephalopathy Status: Acute Category: Medical Code(s): G93.40 - Encephalopathy, unspecified (6) Lobar pneum
[2020-12-03 09:10] LABS: Lymphocytes % 6 % (10-50); Monocytes % 2 % (2-9); Neutrophils % 92 % (42-76); Total Cells Counted 100
[2020-12-03 09:12] LABS: Platelet Estimate Marked Increase; RBC Morphology Normal
--- NOTE | 2020-12-03 17:19 | PC.NURSE ---
PT FSBS HAS REMAINED ELEVATED THIS SHIFT. 1630 CHECK WAS 333. SHE HAD TOLERATED TITRATION OF VAPOTHERM WELL BUT DID HAVE A PERIOD OF DESAT THIS EVENING AROUND 1700. VAPOTHERM WAS INCREASED TO 30LPM @45% O2. PT DOES NOT APPEAR DYSPNIEC AT THIS TIME AND O2 SATS HAVE INCREASED TO >90%. APPETITE IS INTACT, SHE DENIES N/V/D. NO NEEDS VOICED
--- NOTE | 2020-12-03 18:52 | PC.NURSE ---
PT OXYGEN ON VAPOTHERM DECREASED TO 40% AT THIS TIME. PT OXYGEN SATURATIONS READS 95%. WILL CONTINUE TO WEAN OXYGEN TOLERATED, AND WILL CONTINUE TO MONITOR.
[2020-12-03 23:06] LABS: POC Glucose,Bedside 292 (70-110)
[2020-12-03 23:06] LABS: POC Glucose,Bedside 362 (70-110)
[2020-12-03 23:06] LABS: POC Glucose,Bedside 368 (70-110)
[2020-12-03 23:06] LABS: POC Glucose,Bedside 497 (70-110)
[2020-12-03 23:06] LABS: POC Glucose,Bedside 433 (70-110)
[2020-12-03 23:06] LABS: POC Glucose,Bedside 291 (70-110)
[2020-12-03 23:06] LABS: POC Glucose,Bedside 355 (70-110)
[2020-12-03 23:06] LABS: POC Glucose,Bedside 333 (70-110)
--- NOTE | 2020-12-03 23:21 | PC.NURSE ---
RESPIRATORY CARE NOTE: VAPOTHERM OXYGEN SETTING DECREASED TO 35% PER WEANING ORDERS, LONG PT TOLERATES CHANGE. PT OXYGEN SATURATION IS 93%; WILL CONTINUE TO WEAN AND MONITOR PT.
[2020-12-04] VITALS (11 sets, daily range): BP systolic 119–188; BP diastolic 70–86; PULSE 78–92; RESP 20; TEMP 36.4–36.9; O2SAT 88–99; BMI 51.0
--- NOTE | 2020-12-04 06:15 | PC.NURSE ---
Vapotherm decreased to 30L with FiO2 35% maintained O2 low 90's for several hours then O2 began to decreased to 79%, with rebreather added O2 increased to 83% respiratory notified and increased Vapotherm until patient stablelized; patient currently at 35L 35% FiO2 with O2 sats between 88-92%; shows no s/s of acute distress, call light within reach, bed at lowest level for safety; will continue to monitor.
[2020-12-04 06:59] LABS: Basophils % 0.1 % (0.1-2.0); Eosinophils # 0.1 K/mm3 (0.0-0.4); Eosinophils % 1.1 % (0.1-12.0); Hematocrit 34.4 % (37.0-47.0); Hemoglobin 11.1 g/dL (12.2-16.2); Lymphocytes # 0.6 K/mm3 (0.7-4.5); Mean Corpuscular HGB Conc 32.4 g/dL (31.8-35.4); Mean Corpuscular Hemoglobin 27.9 pg (27.0-31.2); Mean Corpuscular Volume 86.2 fl (81-99); Mean Platelet Volume 9.1 fl (7.4-10.4); Monocytes # 0.3 K/mm3 (0.1-1.0); Monocytes % 2.6 % (1.7-9.3); Neutrophils # 11.1 K/mm3 (1.8-7.8); Neutrophils % 91.1 % (37.0-80.0); Platelet Count 546 K/mm3 (142-424); Red Blood Count 3.99 M/mm3 (4.20-5.40); Red Cell Distribution Width 15.4 % (11.5-17.5); White Blood Count 12.1 K/mm3 (4.8-10.8)
[2020-12-04 07:02] LABS: MANUAL DIFFERENTIAL MANUAL DIFFERENTIAL (MANUAL DIFF)
[2020-12-04 07:12] LABS: Lymphocytes % 7 % (10-50); Neutrophils % 90 % (42-76); Platelet Estimate Normal; RBC Morphology Normal; Rouleaux 1+; Total Cells Counted 100
--- NOTE | 2020-12-04 07:51 | HMH.ACPN2 ---
Internal Medicine - PN: Subj *Date: 12/04/20 *Time: 08:36 Interval history: Overall doing well this morning. Still on 40% FiO2 with Vapotherm. Saturations in the mid to high 90s on exam. Decreased to 35%. Patient reports improvement in her appetite. Denies nausea or vomiting. Having regular bowel movements. Block catheter still in place. Asking again to go home today. Explained to her that we are making good progress but still need to decrease her oxygen requirement. Updated on plan. Blood sugar remains high. Blood pressure improved this morning. Exam Vital signs and Labs for Last 24 Hours: Temp Pulse Resp BP Pulse Ox 98 F 78 20 127/70 88 L 12/04/20 03:57 12/04/20 03:57 12/04/20 03:57 12/04/20 03:57 12/04/20 06:55 Laboratory Results - last 24 hr 12/02/20 12:04: POC Glucose 362 H* 12/02/20 16:59: POC Glucose 433 H* 12/02/20 21:39: POC Glucose 497 H* 12/03/20 05:16: POC Glucose 355 H* 12/03/20 06:38: Total Counted 100, Neutrophils % (Manual) 92 H, Lymphocytes % (Manual) 6 L, Monocytes % (Manual) 2, Differential Comment , Platelet Estimate Marked increase, RBC Morphology Normal 12/03/20 09:32: POC Glucose 292 H 12/03/20 11:27: POC Glucose 291 H 12/03/20 16:20: POC Glucose 333 H* 12/03/20 22:50: POC Glucose 368 H* 12/04/20 06:45: WBC 12.1 H, RBC 3.99 L, Hgb 11.1 L, Hct 34.4 L, MCV 86.2, MCH 27.9, MCHC 32.4, RDW 15.4, Plt Count 546 H, MPV 9.1, Neut % (Auto) 91.1 H, Lymph % (Auto) 5.0 L, [place] % (Auto) 2.6, Eos % (Auto) 1.1, Baso % (Auto) 0.1, Neut # (Auto) 11.1 H, Lymph # (Auto) 0.6 L, [place] # (Auto) 0.3, Eos # (Auto) 0.1, Baso # (Auto) 0.0, Total Counted 100, Neutrophils % (Manual) 90 H, Band Neutrophils % 3.0, Lymphocytes % (Manual) 7 L, Platelet Estimate Normal, RBC Morphology Normal, [place] 1+ I & O for Last 24 hours: Intake & Output 12/01/20 12/02/20 12/03/20 12/04/20 23:59 23:59 23:59 23:59 Intake Total 1151 / 1151 720 / 720 2580 / 2580 Output Total 1999 5200 / 6200 3300 / 3300 Balance -849 / -849 -4480 / -5480 -720 / -720 Weight 137.438 kg 108.522 kg 135.766 kg 135.652 kg Narrative: - Constitutional NAD, morbidly obese, chronically ill appearing - *Routine HEENT Exam Head: Present: normocephalic Eye: Present: EOMI, PERRL ENT: Present: mucous membranes moist - *Routine Neck Exam Present: supple. Absent: lymphadenopathy - *Routine Respiratory Exam Present: CTA bilaterally, complicated by body habitus, no wheeze or rhonchi - *Routine Cardiovascular Exam Present: RRR - *Routine Abdominal Exam Present: soft, normoactive bowel sounds. Absent: tenderness - *Routine Extremities Exam Present: edema (Trace in right lower extremity). No cyanosis, clubbing; Left lower extremity amputation chronic - *Routine Skin Exam Present: warm. Absent: rash - *Routine Neurological Exam Present: alert, oriented X3 Assessment and Plan (1) Respiratory failure with hypoxia Status: Acute Qualifiers: Chronicity: acute Qualified Code(s): J96.01 - Acute respiratory failure with hypoxia Category: Medical Code(s): J96.91 - Respiratory failure, unspecified with hypoxia (2) Pneumonia due to COVID-19 virus Status: Acute Category: Medical Code(s): U07.1 - COVID-19; J12.82 - Pneumonia due to coronavirus disease 2019 (3) Abdominal pain Status: Acute Category: Medical Code(s): R10.9 - Unspecified abdominal pain (4) Acute kidney injury Status: Acute Category: Medical Code(s): N17.9 - Acute kidney failure, unspecified (5) Encephalopathy Status: Acute Category: Medical Code(s): G93.40 - Encephalopathy, unspecified (6) Lobar pneumonia Status: Acute Category: Medical Code(s): J18.1 - Lobar pneumonia, unspecified organism (7) Hyperkalemia Status: Resolved Category: Medical Code(s): E87.5 - Hyperkalemia - Assessment and plan all Dx Assessment and Plan for all problems:: 45-year-old female with multiple comorbidities complicati
--- NOTE | 2020-12-04 07:52 | XR_ITS ---
PROCEDURE INFORMATION: Exam: XR Chest Exam date and time: 12/04/2020 7:52 AM Age: 45 years old Clinical indication: Shortness of breath; Additional info: Increased o2 requirement TECHNIQUE: Imaging protocol: XR of the chest. Views: 1 view. COMPARISON: CR XR CHEST PORTABLE 11/28/2020 12:04 AM FINDINGS: Lungs: There continues to be airspace disease throughout both lungs, unchanged. Pleural spaces: Unremarkable. No pleural effusion. No pneumothorax. Heart/Mediastinum: Unremarkable. No cardiomegaly. Bones/joints: Unremarkable. IMPRESSION: Stable chest.
[2020-12-04 09:42] LABS: Chloride 102 mmol/L (98-107); Sodium 132 mmol/L (136-145)
[2020-12-04 09:43] LABS: Potassium 4.9 mmoL/L (3.5-5.1)
[2020-12-04 09:45] LABS: Blood Urea Nitrogen 29 mg/dl (7-17); Creatinine Clearance Estimated 86 mL/min (50-200); Estimated Glomerular Filt Rate 90 ml/min (>60); GFR (African American) 109 ML/MIN (>60)
[2020-12-04 09:46] LABS: Anion Gap 12.9 mEq/L (5-15); Calcium 9.5 mg/dl (8.4-10.2); Carbon Dioxide 22 mmol/L (22.0-30.0); Magnesium 1.5 mg/dl (1.6-2.3)
[2020-12-04 09:51] LABS: Glucose 427 mg/dl (74-100)
--- NOTE | 2020-12-04 17:13 | PC.NURSE ---
Patient is resting in bed. Neurologically is alert and oriented x 4. Blood glucose levels have been in excess of 400, last blood glucose at 1630 was 438 requiring 20 units coverage. Patient has eaten well, requesting glucerna in between meals. No nausea or vomiting. One bm today. Patient has ulcer on bottom of right foot. Dressing changed today. Skin is otherwise in tact. Iv is c/d/i. Patient has been able to wean from the vapotherm to 6l NC, currently satting at 95%. Patient has used her incentive spirometer independently throughout the day. Was given IV lasix this morning and responded with 1900 in her mayo catheter and 925 post catheter removal. Will continue to monitor patient.
[2020-12-04 23:24] LABS: Glucose,Random 407 mg/dL (74-100)
[2020-12-05] VITALS: BP 147/78; PULSE 86; RESP 16; TEMP 36.6; O2SAT 95
[2020-12-05 04:00] VITALS: BP 125/60; PULSE 69; RESP 18; TEMP 36.8; O2SAT 94
[2020-12-05 05:19] VITALS: BMI 55458888.8
--- NOTE | 2020-12-05 05:36 | PC.NURSE ---
patient had an uneventful night this shift. No s/s of acute distress noted, call light within reach, bed at lowest level for safety; will continue to monitor.
[2020-12-05 06:13] LABS: Basophils % 0.3 % (0.1-2.0); Eosinophils # 0.1 K/mm3 (0.0-0.4); Eosinophils % 1.1 % (0.1-12.0); Hematocrit 36.6 % (37.0-47.0); Hemoglobin 11.4 g/dL (12.2-16.2); Lymphocytes # 0.8 K/mm3 (0.7-4.5); Lymphocytes % 6.9 % (10-50); Mean Corpuscular HGB Conc 31.2 g/dL (31.8-35.4); Mean Corpuscular Hemoglobin 27.1 pg (27.0-31.2); Mean Corpuscular Volume 86.8 fl (81-99); Mean Platelet Volume 8.7 fl (7.4-10.4); Monocytes # 0.4 K/mm3 (0.1-1.0); Neutrophils # 10.7 K/mm3 (1.8-7.8); Neutrophils % 88.7 % (37.0-80.0); Platelet Count 696 K/mm3 (142-424); Red Blood Count 4.22 M/mm3 (4.20-5.40); Red Cell Distribution Width 15.3 % (11.5-17.5)
[2020-12-05 06:21] LABS: MANUAL DIFFERENTIAL MANUAL DIFFERENTIAL (MANUAL DIFF)
[2020-12-05 06:43] LABS: Eosinophils % 1 % (0-3); Hypochromasia 1+; Lymphocytes % 10 % (10-50); Neutrophils % 83 % (42-76); Platelet Estimate Moderate Increase; Rouleaux 1+; Total Cells Counted 100
[2020-12-05 06:50] LABS: Chloride 98 mmol/L (98-107); Sodium 130 mmol/L (136-145)
[2020-12-05 06:51] LABS: Potassium 5.6 mmoL/L (3.5-5.1)
[2020-12-05 06:53] LABS: Blood Urea Nitrogen 34 mg/dl (7-17); Creatinine Clearance Estimated 202 mL/min (50-200); Estimated Glomerular Filt Rate 90 ml/min (>60); GFR (African American) 109 ML/MIN (>60)
[2020-12-05 06:54] LABS: Anion Gap 13.6 mEq/L (5-15); Calcium 9.5 mg/dl (8.4-10.2); Carbon Dioxide 24 mmol/L (22.0-30.0); Glucose 392 mg/dl (74-100); Magnesium 1.7 mg/dl (1.6-2.3)
[2020-12-05 08:00] VITALS: BP 137/65; PULSE 91; RESP 20; TEMP 36.6; O2SAT 92; O2SAT 94
--- NOTE | 2020-12-05 08:19 | [facility]H.DCSUM ---
General - General Admission date:: 11/26/20 Discharge date: 12/05/20 HPI HPI: 45-year-old -[place] female who is a long-term intermediate resident secondary to multiple medical problems including peripheral vascular disease, chronic leg wounds, chronic neuropathy with nonambulatory status, morbid obesity and severe diabetes, who was hospitalized last week because of COVID-19 pneumonia-vaccine attenuated-who really did well over 48 hours and was transferred back to intermediate with treatment for bacterial pneumonia. However, unfortunately, through the day yesterday morning she became obtunded, febrile, confused and was brought back to the emergency department. She was admitted by the ER physician with broad-spectrum IV antibiotics and standard COVID-19 regimen. Unfortunately, through the night she is failed to really clear. Her vital signs have been stable but she has been confused, taking off her oxygen and her clothing, minimally responsive to nursing staff and complaining of pain all over. Hospital Course Hospital Course: Patient was admitted, placed on high-dose IV steroids, Vapotherm oxygen and broad-spectrum IV antibiotics given the likelihood of intermediate acquired pneumonia and the repeat COVID-19 admission. Over the first couple of days patient was very tenuous, with tenuous oxygen status and waxing and waning neurologic status. However, as her oxygen status improved, so did she, with improving mental status and improving CO2 levels. Her oxygen was able to be weaned somewhat in her regular home medications were started including Lyrica which significantly helped her mental status and her ongoing pain. She remained hyperglycemic throughout her stay, on IV steroids and sliding scale insulin was given. Over the past couple of days she is made some nice improvement. Mental status is returned to normal. This morning she is down to 5 L nasal cannula without Vapotherm support, O2 saturations are in the mid 90s. Pulse and blood pressure are normal. She is alert, oriented. Eating well, able to move around in the bed and get up on the side of the bed into the chair by herself. She is reached maximal medical improvement in the acute care setting. She has finished her antibiotic course, and is technically out of isolation from her COVID-19 infection. Plan will be to discharge back to [facility] today with the following plan: 1. She will be on no antibiotics. 2. She will be on a tapering course of dexamethasone. She will need to be on 8 mg daily until December 08 at which time she will go to 6 mg daily, and then on December 12 she will transition down to 4 mg daily on the through the , and on December 16 she will go down to 2 mg daily and her steroids then will be discontinued after her dose on December 18. 3. Basal insulin dose will increase to 70 units twice daily as noted in the reconciliation form. 4. Pain, Lyrica medications will be as noted on the reconciliation form. 5. She will need reevaluation by PT/OT for functional decline issues and ongoing wound care. 6. Follow-up will be per our regular rounds in the intermediate. Objective Vital signs: Temp Pulse Resp BP Pulse Ox 98.2 F 69 18 125/60 94 L 12/05/20 04:00 12/05/20 04:00 12/05/20 04:00 12/05/20 04:00 12/05/20 04:00 no acute distress, obese - *Routine HEENT Exam Head: Present: normocephalic Eye: Present: EOMI, PERRL ENT: Present: mucous membranes moist - *Routine Neck Exam Present: supple - *Routine Respiratory Exam Present: CTA bilaterally, distant breath sounds - *Routine Cardiovascular Exam Present: RRR - *Routine Abdominal Exam Present: soft, normoactive bowel sounds. Absent: tenderness - *Routine Extremities Exam Absent: cyanosis, clubbing, edema Comments: Status post left BKA. Chronic poorly healing wounds on the right leg as previously noted. Right extremity lo
[2020-12-05 16:19] LABS: POC Glucose,Bedside 441 (70-110)
[2020-12-05 16:19] LABS: POC Glucose,Bedside 379 (70-110)
== END 2020-12-05 12:25 | DRG 177 ==
LOC: ER 18:20 → ICU 21:58
PROVIDERS: Internal Medicine Adolescent Medicine; Admitting Provider Emergency Medicine; Emergency Provider Emergency Medicine; Visit Provider Internal Medicine Adolescent Medicine
DX: U07.1 COVID-19 (principal); J12.82 Pneumonia due to coronavirus disease 2019; J96.01 Acute respiratory failure with hypoxia; J18.9 Pneumonia, unspecified organism; J15.9 Unspecified bacterial pneumonia; Z68.43 Body mass index [BMI] 50.0-59.9, adult; N17.9 Acute kidney failure, unspecified; G93.40 Encephalopathy, unspecified; J81.1 Chronic pulmonary edema; E11.9 Type 2 diabetes mellitus without complications; Z79.4 Long term (current) use of insulin; I10 Essential (primary) hypertension; E66.01 Morbid (severe) obesity due to excess calories; F17.210 Nicotine dependence, cigarettes, uncomplicated; Z88.0 Allergy status to penicillin; Z88.2 Allergy status to sulfonamides; Z79.899 Other long term (current) drug therapy; E87.5 Hyperkalemia; R10.9 Unspecified abdominal pain; Y95 Nosocomial condition; E11.51 Type 2 diabetes mellitus with diabetic peripheral angiopathy without gangrene; E11.40 Type 2 diabetes mellitus with diabetic neuropathy, unspecified; E11.65 Type 2 diabetes mellitus with hyperglycemia
CPT/HCPCS: 36415; 70450; 71045; 74176; 80048; 80053; 80202; 81001; 82140; 82803; 82947; 82962; 83605; 83735; 83880; 84443; 84484; 85007; 85025; 87040; 93005; 93306; 94640; 94760; 94761; 96365; 96366; 96375; 99285; J1956; J3370

== ENCOUNTER 2020-12-18 16:21 | Emergency (ER) | payer MEDICAID, SELFPAY ==
[2020-12-18] VITALS (7 sets, daily range): BP systolic 85–148; BP diastolic 37–75; PULSE 80–99; RESP 16–20; TEMP 36.8–37.2; O2SAT 96–100; BMI 48.4
--- NOTE | 2020-12-18 16:31 | XR_ITS ---
PROCEDURE INFORMATION: Exam: XR Chest Exam date and time: 12/18/2020 4:31 PM Age: 45 years old Clinical indication: Pain; Patient HX: Weakness chest pressure sob-- from nursing facility TECHNIQUE: Imaging protocol: XR of the chest. Views: 1 view. COMPARISON: CR XR CHEST PORTABLE 12/04/2020 8:09 AM FINDINGS: Lungs: Patchy bilateral interstitial and airspace opacities are seen. Findings are similar to December 04. Pleural spaces: Unremarkable. No pleural effusion. No pneumothorax. Heart/Mediastinum: Heart is mildly enlarged. Bones/joints: Unremarkable. IMPRESSION: No substantial change
--- NOTE | 2020-12-18 16:32 | ECG_ITS ---
APPROVED REPORT Exam: Resting ECG HR:85 bpm ECG Measurements Heart Rate 85 AXES NM 138 P 49 QRSd 98 QRS 15 QT 360 T 36 QTc 428 Conclusion Normal sinus rhythm Normal ECG Electronically signed by : Jasper Chen MD 12/19/2020 18:09:12
--- NOTE | 2020-12-18 17:29 | PC.NURSE ---
lab here drawing blood
[2020-12-18 17:36] LABS: Basophils % 0.1 % (0.1-2.0); Eosinophils # 0.1 K/mm3 (0.0-0.4); Eosinophils % 0.9 % (0.1-12.0); Hematocrit 29.3 % (37.0-47.0); Hemoglobin 9.2 g/dL (12.2-16.2); Lymphocytes # 1.2 K/mm3 (0.7-4.5); Lymphocytes % 8.2 % (10-50); Mean Corpuscular HGB Conc 31.4 g/dL (31.8-35.4); Mean Corpuscular Hemoglobin 28.8 pg (27.0-31.2); Mean Corpuscular Volume 91.7 fl (81-99); Mean Platelet Volume 6.8 fl (7.4-10.4); Monocytes # 0.2 K/mm3 (0.1-1.0); Monocytes % 1.7 % (1.7-9.3); Neutrophils # 12.7 K/mm3 (1.8-7.8); Platelet Count 229 K/mm3 (142-424); Red Cell Distribution Width 15.1 % (11.5-17.5); White Blood Count 14.3 K/mm3 (4.8-10.8)
[2020-12-18 17:40] LABS: MANUAL DIFFERENTIAL MANUAL DIFFERENTIAL (MANUAL DIFF)
[2020-12-18 17:41] LABS: Chloride 105 mmol/L (98-107); Sodium 133 mmol/L (136-145)
[2020-12-18 17:43] LABS: Blood Urea Nitrogen 60 mg/dl (7-17); Creatinine Clearance Estimated 34 mL/min (50-200); Estimated Glomerular Filt Rate 27 ml/min (>60); GFR (African American) 32 ML/MIN (>60)
[2020-12-18 17:44] LABS: Alanine Aminotransferase 41 U/L (12-78); Albumin Level 2.9 g/dl (3.5-5.0); Albumin/Globulin Ratio 1.1 (1.1-1.8); Alkaline Phosphatase 72 U/L (38-126); Aspartate Amino Transferase 33 U/L (14-36); Bilirubin,Total 0.4 mg/dl (0.2-1.3); Calcium 7.5 mg/dl (8.4-10.2); Carbon Dioxide 19 mmol/L (22.0-30.0); Globulin 2.7 g/dL (1.3-3.2); Glucose 295 mg/dl (74-100); Total Protein,Serum 5.6 g/dl (6.3-8.2)
[2020-12-18 17:45] LABS: Lactic Acid 1.5 mmol/L (0.7-2.1)
--- NOTE | 2020-12-18 17:45 | PC.NURSE ---
aware of potassium
[2020-12-18 17:50] LABS: Lymphocytes % 6 % (10-50); Neutrophils % 94 % (42-76); Platelet Estimate Normal; RBC Morphology Normal; Total Cells Counted 100
[2020-12-18 17:57] LABS: Troponin I 0.02 ng/ml (0.00-0.034)
--- NOTE | 2020-12-18 18:26 | PC.NURSE ---
PT PULLED OUT IV, PT REFUSES TO HAVE BLOOD PRESSURE TAKEN
[2020-12-18 18:44] LABS: Coronavirus 19, PCR Not Detected (NotDetected); Influenza A, PCR Not Detected (NotDetected); Influenza B, PCR Not Detected (NotDetected)
--- NOTE | 2020-12-18 18:44 | HMH.EDGENADL ---
ED Disposition Clinical Impression: Cauda equina syndrome, TANIA (acute kidney injury), Hyperkalemia Disposition: Xfer Short-Term Hosp Condition on Discharge: Serious Referrals: Provider,Referral, [Primary Care Provider] - Forms: Transfer Record - ED - Critical Care Critical Care Time: No Attestation: On 12/18/20, the high probability of a clinically significant, sudden or life threatening deterioration of the following system(s) required my full and direct attention, intervention and personal management. The time I documented below is in addition to time spent performing reported procedures but includes the following listed in this critical care notation. Medical Decision Making - [place] Inquiry Pt receiving controlled substance: No Vital Signs: 12/18/20 16:22 12/18/20 17:00 12/18/20 17:30 Temperature 99 F Temperature Source Oral Pulse Rate 81 88 Pulse Rate [Radial] 83 Respiratory Rate 20 16 20 Blood Pressure 86/56 L 127/45 L Blood Pressure [Right Arm] 85/37 L Blood Pressure Mean [Right Arm] 53 Blood Pressure Source Blood Pressure Position Blood Pressure Position [Right Arm] Sitting 02 Sat by Pulse Oximetry 98 100 99 Oxygen Delivery Method Nasal Cannula Nasal Cannula Nasal Cannula Oxygen Flow Rate (LPM) 2 2 2 12/18/20 18:00 12/18/20 18:45 12/18/20 19:00 Temperature Temperature Source Pulse Rate 80 90 99 H Pulse Rate [Radial] Respiratory Rate 20 20 20 Blood Pressure 148/75 H 104/46 L 117/42 L Blood Pressure [Right Arm] Blood Pressure Mean [Right Arm] Blood Pressure Source Blood Pressure Position Sitting Sitting Sitting Blood Pressure Position [Right Arm] 02 Sat by Pulse Oximetry 98 96 96 Oxygen Delivery Method Nasal Cannula Nasal Cannula Nasal Cannula Oxygen Flow Rate (LPM) 2 2 2 12/18/20 19:52 Temperature 98.2 F Temperature Source Oral Pulse Rate 92 H Pulse Rate [Radial] Respiratory Rate 17 Blood Pressure 109/62 L Blood Pressure [Right Arm] Blood Pressure Mean [Right Arm] Blood Pressure Source Automatic Cuff Blood Pressure Position Sitting Blood Pressure Position [Right Arm] 02 Sat by Pulse Oximetry Oxygen Delivery Method Room Air Oxygen Flow Rate (LPM) - Lab Data Lab Results 12/18/20 16:55: SARS-CoV-2 (PCR) Not detected, Influenza A Untype (PCR) Not detected, Influenza Type B (PCR) Not detected 12/18/20 17:33: WBC 14.3 H, RBC 3.20 L, Hgb 9.2 L, Hct 29.3 L, MCV 91.7, MCH 28.8, MCHC 31.4 L, RDW 15.1, Plt Count 229, MPV 6.8 L, Neut % (Auto) 89.0 H, Lymph % (Auto) 8.2 L, [place] % (Auto) 1.7, Eos % (Auto) 0.9, Baso % (Auto) 0.1, Neut # (Auto) 12.7 H, Lymph # (Auto) 1.2, [place] # (Auto) 0.2, Eos # (Auto) 0.1, Baso # (Auto) 0.0, Total Counted 100, Neutrophils % (Manual) 94 H, Lymphocytes % (Manual) 6 L, Platelet Estimate Normal, RBC Morphology Normal 12/18/20 17:33: Sodium 133 L, Potassium 6.0 H, Chloride 105, Carbon Dioxide 19 L, Anion Gap 15.0, BUN 60 H, Creatinine 2.00 H, Estimated Creat Clear 34, Estimated GFR 27 L, Est GFR ( Amer) 32 L, Glucose 295 H, Calcium 7.5 L, Total Bilirubin 0.4, AST 33, ALT 41, Alkaline Phosphatase 72, Troponin I 0.02, Total Protein 5.6 L, Albumin 2.9 L, Globulin 2.7, Albumin/Globulin Ratio 1.1 12/18/20 17:33: Lactate 1.5 12/18/20 17:33: Procalcitonin 0.544 12/18/20 17:33: ESR 32 H 12/18/20 17:33: C-Reactive Protein 224.4 H 12/18/20 18:45: Urine Color Yellow, Urine Appearance Clear, Urine pH 5.5, Ur Specific [place] 1.025, Urine Protein Negative, Urine Glucose (UA) 3+, Urine Ketones Negative, Urine Blood Negative, Urine Nitrate Negative, Urine Bilirubin Negative, Urine Urobilinogen 0.2, Ur Leukocyte Esterase Negative, Urine RBC None, Urine WBC Occasional, Ur Squamous Epith Cells None, Urine Bacteria None, Urine Yeast 2+ Result diagrams: 12/18/20 17:33 12/18/20 17:33 Orders (Tests/Meds): ED MEDICATIONS Discontinued Medications Generic Name Dose Route Start Last Admin Trade Name Freq PRN Reason Stop Do
[2020-12-18 18:46] LABS: Procalcitonin 0.544 ng/mL (0.0-2.0)
[2020-12-18 18:50] LABS: Microscopic, Urine URINE MICROSCOPIC (MICROSCOPIC)
[2020-12-18 18:52] LABS: Appearance,Urine CLEAR (Clear); Bilirubin,Urine Negative (Negative); Blood, Urine Negative (Negative); Color,Urine YELLOW (Yellow); Glucose,Urine (UA) 3+ (Negative); Ketones,Urine Negative (Negative); Leukocyte Esterase,Urine Negative (Negative); Nitrate,Urine Negative (Negative); PH,Urine 5.5 (5.0-8.5); Protein,Urine Negative (Negative); Specific Gravity, Urine 1.025 (1.005-1.030); Urobilinogen,Urine 0.2 EU/dl (0.2)
[2020-12-18 19:12] LABS: WBC,Urine Occasional #/hpf (0-3); Yeast,Urine 2+ /lpf
[2020-12-18 19:21] LABS: C-Reactive Protein 224.4 mg/L (0-4)
--- NOTE | 2020-12-18 19:22 | PC.NURSE ---
Calling [facility] at this time.
--- NOTE | 2020-12-18 19:23 | PC.NURSE ---
Pt cleaned of BM and turned
--- NOTE | 2020-12-18 19:28 | PC.NURSE ---
Dr Caal speaking with [facility]
--- NOTE | 2020-12-18 19:32 | PC.NURSE ---
1200[facility] URINE OUTPUT
--- NOTE | 2020-12-18 19:32 | PC.NURSE ---
Pt accepted by [facility] by
[2020-12-18 20:16] LABS: Erythrocyte Sedimentation Rate 32 mm/hr (0-20)
== END 2020-12-18 20:20 | disposition short-term general hospital (02) ==
PROVIDERS: Emergency Provider Emergency Medicine
DX: G83.4 Cauda equina syndrome (principal); N17.9 Acute kidney failure, unspecified; E87.5 Hyperkalemia; Z86.16 Personal history of COVID-19; I10 Essential (primary) hypertension; E11.9 Type 2 diabetes mellitus without complications; M79.7 Fibromyalgia; F17.210 Nicotine dependence, cigarettes, uncomplicated; Z89.512 Acquired absence of left leg below knee; E78.5 Hyperlipidemia, unspecified; Z88.0 Allergy status to penicillin; Z88.2 Allergy status to sulfonamides
CPT/HCPCS: 36415; 71045; 80053; 81001; 83605; 84145; 84484; 85007; 85025; 85651; 86140; 87040; 93005; 96365; 96375; 99285; C9803; U0003; U0005

== ENCOUNTER → 2020-12-27 09:50 | Outpatient (CLI) | payer MEDICAID, SELFPAY | PROVIDERS: Visit Provider Internal Medicine Adolescent Medicine | DX: L03.312 Cellulitis of back [any part except buttock and flank] (principal) | CPT/HCPCS: 87075; 87205 ==